=== PATIENT | female | born 1990 | race Caucasian/White ===

== ENCOUNTER 2019-11-17 20:58 | Emergency (ER) | payer OTHER, SELFPAY ==
[2019-11-17 20:58] VITALS: BP 126/72; PULSE 101; RESP 22; TEMP 36.5; O2SAT 99; BMI 37.5
--- NOTE | 2019-11-17 21:27 | RAD_ITS ---
STUDY: X-RAY CHEST REASON FOR EXAM: Female, 29 years old. Recent flu diagnosis. Left side rib pain when coughing. TECHNIQUE: PA and lateral views of the chest. COMPARISON: None. FINDINGS: The lungs are clear and expanded. There is no demonstrated pleural abnormality. Normal size heart. Normal mediastinum and margret. Normal visualized pulmonary arteries. Normal visualized aortic arch and descending thoracic aorta. Normal visualized thoracic spine. Normal visualized ribs, clavicles, and shoulders. There is no demonstrated abnormality of the visualized soft tissue structures of the upper abdomen. RAD/Chest PA and Lateral IMPRESSION: No acute cardiopulmonary process. Electronically Signed: Angelina Shaffer MD at 22:14 EST Tel , Service support ,
[2019-11-17] MEDS: Acetaminophen 500 MG Tablet 1000 MG PO (21:39)
--- NOTE | 2019-11-17 22:07 | ED.DCSUM_ITS ---
- ER Visit Summary Date of Service: 11/17/19 Chief Complaint: Left posterior rib pain after coughing History of Present Illness: The patient is a 29 F who is currently 34 weeks . Recently has had URI symptoms. And earlier today coughed several times and sneezed hard and had acute left lower rib cage pain. No hemoptysis. No history of DVT or PE. No calf pain or swelling. Pain is worse with movement. No recent travel or surgery or hospitalization. No family history of DVT, PEs or clotting disorder. Physical Examination: Young female no acute distress planing of posterior rib cage pain worse with movement. Vital signs are stable afebrile. Pulse ox 99% room air no hypoxia. H EENT exam unremarkable. Neck nontender no JVD. No lymphadenopathy. Lungs clear to auscultation bilaterally. Heart regular rhythm no murmur rate about 100. Chest wall nontender. Abdomen soft nontender normal bowel sounds no peritoneal signs. Extremities moves all 4. Calves nontender without edema or cords. Nontender spine nontender left posterior lower rib cage is mildly tender. No ecchymosis or bruising. No subcu air or crepitance. No bony deformity. Neurologically she is awake and alert with no focal motor deficits. Test Results: Chest x-ray AP lateral view read by myself shows no acute abnormality. Normal cardiac silhouette. Normal lungs. No obvious rib fractures. Emergency Department Course and Treatment: History and exam are consistent with left posterior rib cage and muscle strain. Treatment Plan: Tylenol for pain. Given a dose Tylenol in ER. Ice to the area. Follow-up. Disposition: Discharge Impression: Left posterior rib cage strain from coughing and sneezing Currently at 34 weeks This note was generated with [employer] dictation software. It may contain incorrect words, spelling, and punctuation that were not noted in review of the chart prior to signing ED Disposition - Plan for ED Patient: Referrals: Meena Mayen [Primary Care Provider] -
--- NOTE | 2019-11-17 22:10 | ED.DEP ---
ED Disposition - Plan for ED Patient: Disposition: Home or Assisted Living Instructions: Chest Wall Strain Referrals: Meena Mayen [Primary Care Provider] - As Needed Mari Alcantara MD [STAFF PHYSICIAN] - Keep Karolyn appointment Additional Instructions: Ice to left posterior rib cage. Tylenol for pain. Follow-up with your FISHERIES MANAGER or your primary care physician as needed. This should progressively improve.
[2019-11-17 22:17] VITALS: PULSE 82; RESP 16; O2SAT 99
== END 2019-11-17 22:18 | disposition home or self-care (01) ==
PROVIDERS: Emergency Provider Emergency Medicine; Family Provider Internal Medicine; PCP Internal Medicine
DX: O26.893 Other specified pregnancy related conditions, third trimester (principal); S29.011A Strain of muscle and tendon of front wall of thorax, initial encounter; Z3A.34 34 weeks gestation of pregnancy; X50.3XXA Overexertion from repetitive movements, initial encounter; Y93.89 Activity, other specified; Y92.89 Other specified places as the place of occurrence of the external cause; Y99.8 Other external cause status
CPT/HCPCS: 71046; 99283

== ENCOUNTER → 2019-12-05 16:50 | Outpatient (CLI) | payer OTHER, SELFPAY ==
[2019-12-05 16:23] VITALS: BMI 37.5
== END ==
PROVIDERS: PCP Internal Medicine; Referring Provider Obstetrics & Gynecology; Visit Provider Obstetrics & Gynecology
DX: Z34.90 Encounter for supervision of normal pregnancy, unspecified, unspecified trimester (principal)
CPT/HCPCS: 87081

== ENCOUNTER 2019-12-17 13:00 | Inpatient (IN) | payer OTHER, SELFPAY ==
[2019-12-14 14:42] VITALS: BMI 38.2
[2019-12-17] VITALS (18 sets, daily range): BP systolic 90–117; BP diastolic 34–75; PULSE 64–87; RESP 14–18; TEMP 36.1–37.1; O2SAT 95–100; BMI 38.2
[2019-12-17] MEDS: Lactated Ringers 1,000 ML 125 ML IV (11:40)
--- NOTE | 2019-12-17 13:11 | HP.PCM_ITS ---
- Problem List (1) Active labor at term Status: Acute (2) Patient is Nondenominational Status: Acute (3) Breech presentation Status: Acute (4) Status: Acute Qualifiers: Comment: 34 week [facility]- records obtained and reviewed. (5) Supervision of normal Status: Acute Comment: LIBAN 12/28/19 girl PC Yunior Carlos History Date of Admission: 12/17/19 History of this : This is a 29 year-old, at 38 weeks gestational age presents IAL4 cm dilated and breech. ECV attempted and failed. plan proceeding with primary LTCS. Medical History: Medical History (Last Reviewed 12/14/19 @ 14:42 by Mariela Bravo) Marydel N91.2 Anxiety F41.9 Surgical History: Surgical History (Last Reviewed 12/05/19 @ 15:59 by Mariela Bravo) History of hand surgery Z98.890 right History of tonsillectomy and adenoidectomy Z98.890 Allergies sulfamethoxazole [From Bactrim] Allergy (Mild, Verified 12/17/19 11:45) other trimethoprim [From Bactrim] Allergy (Mild, Verified 12/17/19 11:45) other amoxicillin Allergy (Verified 12/17/19 11:45) Shortness of breath cephalexin [From Keflex] Allergy (Verified 12/17/19 11:45) Shortness of breath citric acid Allergy (Verified 12/17/19 11:45) Itching gluten Allergy (Verified 12/17/19 11:45) Itching lactose Allergy (Verified 12/17/19 11:45) Itching Penicillins Allergy (Verified 12/17/19 11:45) Shortness of breath red dye Allergy (Verified 12/17/19 11:45) Itching soy Allergy (Verified 12/17/19 11:45) Itching Home Medications: Home Medications Epi Pen (for allergic rxn) 1 injectable IM X1 PRN 11/17/19 ferrous sulfate 325 mg (65 mg iron) tablet 325 mg PO DAILY 11/28/19 lactobacillus combination no.8 3 billion cell capsule 3,000 mmu cells PO DAILY 11/28/19 vitamin#30 30 mg iron-10 mg iron-folic acid 1 mg-omg3 capsule 1 cap PO DAILY 11/28/19 Smoking Status: Never smoker NST - FHR Rate Baby A Baseline: 140 Variability:: Moderate Accelerations:: 15 x 15 NST Reactive:: Yes FHR Category:: Category I Uterine Activity:: regular History Past Pregnancies: Past Pregnancies previous term Labs: Social History Smoking Status Never smoker Expected Delivery Method: Primary Section Review of Systems Constitutional: Denies: Fever, Malaise Eyes: Denies: Blurred vision, Vision Change HEENT: Denies: Head Aches, Visual Changes Cardiovascular: Denies: Chest Pain, Palpitations Respiratory: Denies: Cough, Shortness of Breath, Wheezing Gastrointestinal: Reports: Abdominal Pain. Denies: Diarrhea, Nausea, Vomiting Genitourinary: Denies: Dysuria, Hematuria Musculoskeletal: Denies: Joint Pain, Muscle pain Skin: Denies: Lesions, Rash Neurological: Denies: Blurred vision, Focal weakness, Headaches Psychiatric: Denies: Anxiety, Depression Endocrine: Denies: Heat/ Cold Intolerance Hematologic/ Lymphatic: Denies: Easy Bruising, Easy Bleeding Physical Exam General: Alert, Cooperative, No apparent distress HEENT: Atraumatic, Normocephalic. Negative for: Thyromegaly, Lymphadenopathy Cardiovascular: Regular rate Lungs: Normal air movement Abdomen: Soft, Non Tender, Gravid Neurological: Deep Tendon Reflexes 2+/4 and Symmetrical, Neuro grossly intact. Negative for: Clonus HEATING AND REFRIGERATION INSPECTOR: Normal external genitalia. Negative for: Vulvar lesions Estimated gestational size: Appropriate for gestational size Presentation: Breech Cervix Dilation (cm): 4 Assessment/Plan All Active Problems (Last Reviewed 12/14/19 @ 14:42 by Mariela Bravo) Active labor at term (Acute) Patient is Nondenominational (Acute) Breech presentation (Acute) (Acute) Supervision of normal (Acute) This is a 29 year-old, , at 38 weeks gestational age presents IAL breech, failed ECV plan proceeding with LTCS now.
[2019-12-17 13:27] LABS: Hematocrit 37.7 % (37-47); Hemoglobin 12.4 g/dL (12.0-15.0); Mean Corp Hgb Conc 32.9 g/dL (32-36); Mean Corpuscular Hgb 29.6 pg (27.0-32.0); Mean Platelet Vol. 10.8 fl (6.2-12.0); Platelet Count 171 K/mm3 (150-450); RBC Distribution Width CV 13.9 % (11.6-14.6); RBC Distribution Width SD 45.2 fl (35.1-43.9); Red Blood Count 4.19 M/mm3 (4.2-5.4); White Blood Count 11.1 K/mm3 (4.4-11.0)
[2019-12-17] MEDS: Ketorolac 30 MG/ML Syringe IV ×2 (14:46→21:08)
--- NOTE | 2019-12-17 15:03 | PCM.OPRPT ---
Problem List (1) Active labor at term Status: Acute (2) Patient is Mandaen Status: Acute (3) Breech presentation Status: Acute (4) Status: Acute Qualifiers: Comment: 34 week [facility]- records obtained and reviewed. (5) Supervision of normal Status: Acute Comment: LIBAN 12/28/19 girl PC Yunior Carlos Delivery Classification: RAYNA Final LIBAN: 12/28/19 Gestational age: 38 Weeks and 3 Days ophthalmology surgical technician: Valeriano Lainez Type of Anesthesia:: Spinal Special Medications: mike methergine Implants Used: none Date of Procedure: 12/17/19 Pre-Operative Diagnosis: ial breech unable to convert Post-Operative Diagnosis: same Indications for : Malpresentation Description of Procedure: The patient is a 29-year-old G2, P1 at 38 and 3 presents in active labor breech sensation. Spinal anesthesia was placed without difficulty. Hoffman catheter was placed. The patient was placed in the dorsal supine position with leftward tilt. Patient was prepped and draped in the normal sterile fashion. Pfannenstiel skin incision was made with the scalpel and carried through to the underlying layer of fascia with the scalpel. Fascia was nicked in the midline and the incision extended laterally. The rectus bellies were dissected off superiorly and inferiorly with out complication both sharply and bluntly. The peritoneum was entered digitally. The incision was stretched and a low transverse uterine incision was made with the scalpel. The 's buttocks was delivered atraumatically followed by the anterior and posterior shoulders without complication the rest of the delivered. The cord was clamped and cut and the infant was handed off to awaiting nurse. The placenta was delivered spontaneously immediately following and was noted to be intact and have a three-vessel cord. The uterus was exteriorized cleared of all clots and debris, and the incision was closed in a double layer closure using #1 Monocryl. The ovaries and fallopian tubes were noted to be within normal limits. Patient had received terbutaline prior to delivery and therefore Methergine was given postdelivery to reduce the risk of atony. The uterus was returned to the maternal abdomen and gutters were cleared of all clots and debris. The peritoneum was closed with 3-0 Monocryl in a running fashion. Gloves were changed prior to fascial closure. Fascia was closed with 0 PDS in a running fashion. Some Mike was used on the subcutaneous tissue and the muscle. Subcutaneous tissue was copiously irrigated and the skin was closed with 3-0 Monocryl in a subcuticular fashion. Mepilex dressing was applied without complication. Patient was taken to recovery in stable condition. It was discussed with the patient that based on the clinical information obtained during this encounter, combined with her history, at this time I would recommend vaginal deliveries for future deliveries if further pregnancies are desired. Amniotic Membrane Rupture Type: Artificial Amniotic Fluid Description: Clear Placenta Disposition: [facility] Specimen(s) sent to pathology: no Drain: Hoffman to straight drain Cord Entanglement: None Cord Vessel Description: 3 Vessels Esitmated Blood Loss (ml): 600 Infant Gender: Female Delayed cord clamping: Yes Antibiotic Given: Ancef 2 grams IV x1 Pt instructed on risks of surgery: Bleeding, Anesthesia Risks, Infection, Injury to surrounding structure(s) including bowel and bladder Complications: None - Admit VTE Documentation VTE Present on Admission: No VTE Mechan Device Prophylaxis: SCD's VTE Pharm Prophylaxis ordered?: No Multi Select Codes - Urinary/Genital Urinary/Genital CPT Codes: 62437 delivery+ Care([facility])
[2019-12-17] MEDS: Oxytocin 30 units/NS 500 ml 30 UNITS/500 ML IV.SOLN 167 UNITS IV (15:15)
[2019-12-17] MEDS: Lactated Ringers 1,000 ML 100 ML IV (18:43)
[2019-12-17] MEDS: 0.9% Saline Lock 10 ML Syringe IV (21:08)
[2019-12-18] VITALS (12 sets, daily range): BP systolic 91–112; BP diastolic 47–62; PULSE 68–98; RESP 14–18; TEMP 36.4–37.1; O2SAT 95–100
[2019-12-18] MEDS: Ketorolac 30 MG/ML Syringe IV ×2 (03:14→09:55)
[2019-12-18] MEDS: 0.9% Saline Lock 10 ML Syringe IV ×2 (03:14→04:05)
--- NOTE | 2019-12-18 03:15 | NURSING ---
chávez catheter removed at this time. 600 cc clear, yellow/evangelist urine dranined prior to removed. 9cc removed from balloon. pt tolerated well. pt aware of the need to void within 6 hours.
[2019-12-18 03:41] LABS: Hematocrit 35.2 % (37-47); Hemoglobin 11.3 g/dL (12.0-15.0); Mean Corp Hgb Conc 32.1 g/dL (32-36); Mean Corpuscular Hgb 29.4 pg (27.0-32.0); Mean Corpuscular Volume 91.4 fL (81-99); Mean Platelet Vol. 10.5 fl (6.2-12.0); Platelet Count 139 K/mm3 (150-450); RBC Distribution Width SD 46.7 fl (35.1-43.9); Red Blood Count 3.85 M/mm3 (4.2-5.4); White Blood Count 11.8 K/mm3 (4.4-11.0)
[2019-12-18] MEDS: Enoxaparin 40 MG/0.4 ML Syringe SC (05:05)
--- NOTE | 2019-12-18 08:42 | PCM.PN.OB ---
Patient Problems: Active and Suspected Problems (Last Reviewed 12/14/19 @ 14:42 by Mariela Bravo) Active labor at term (Acute) Subjective: Doing well, no complaints.Pain controlled. Denies CP, SOB, N,V. Ambulating well-cath out and has urinated X 2, tolerating po. Lochia moderate, going well. - Physical Exam Vitals/I&O's: Vital Signs Temp Pulse Resp BP Pulse Ox 98.2 F 70 16 97/52 L 98 12/18/19 08:30 12/18/19 08:30 12/18/19 08:30 12/18/19 08:30 12/18/19 08:30 Oxygen Delivery Method Room Air Weight: 230 lb Body Mass Index (BMI) 38.2 Intake and Output for Last 24 Hours 12/16/19 12/17/19 12/18/19 23:59 23:59 23:59 Intake Total 1713.25 / 1713.25 933.33 / 933.33 Output Total 200 / 200 1350 / 1350 Balance 1513.25 / 1513.25 -416.67 / -416.67 General: Alert, Oriented x3 Abdomen: Soft, Non-Distended, - - FF below U. Dressing dry and intact, very small old drainage only Laboratory Results 12/17/19 11:40: WBC 11.1 H, RBC 4.19 L, Hgb 12.4, Hct 37.7, MCV 90.0, MCH 29.6, MCHC 32.9, RDW Std Deviation 45.2 H, RDW Coeff of Razia 13.9, Plt Count 171, MPV 10.8 12/17/19 11:40: Blood Type O POSITIVE, Antibody Screen NEGATIVE 12/18/19 03:20: WBC 11.8 H, RBC 3.85 L, Hgb 11.3 L, Hct 35.2 L, MCV 91.4, MCH 29.4, MCHC 32.1, RDW Std Deviation 46.7 H, RDW Coeff of Razia 14.0, Plt Count 139 L, MPV 10.5 Current Medications Acetaminophen (Tylenol) 1,000 mg PO Q8H PRN PRN Reason: Pain Score 1-3/10 Bisacodyl (Dulcolax) 10 mg RECTAL UD PRN PRN Reason: If no BM Enoxaparin Sodium (Lovenox) 40 mg SC DAILY@0600 ELVIA Last Admin: 12/18/19 05:05 Dose: 40 mg Documented by: Hydrocortisone (Hytone) 1 applic TOPICAL TID PRN PRN; Protocol PRN Reason: Discomfort Naloxone HCl 4 mg/ Dextrose 504 mls @ 0 mls/hr IV .Q0M PRN; Protocol PRN Reason: Respiratory depression Ketorolac Tromethamine (Toradol) 30 mg IV Q6H [facility] Stop: 12/19/19 15:01 Last Admin: 12/18/19 03:14 Dose: 30 mg Documented by: Methylergonovine Maleate (Methergine) 0.2 mg IM X1 PRN PRN Reason: Uterine Atony Naloxone HCl (Narcan) 0.02 mg IV Q1M PRN PRN Reason: RR <10 and pt unresponsive Naproxen (Naprosyn) 250 - 500 mg PO Q8H PRN PRN PRN Reason: Pain Score 1-3/10 Ondansetron HCl (Zofran) 4 mg IV Q4H PRN PRN PRN Reason: Nausea Ondansetron HCl (Zofran Odt) 4 mg PO Q4H PRN PRN PRN Reason: ITCHING Stop: 12/18/19 15:49 Oxycodone HCl (Oxyir) 5 - 10 mg PO Q4H PRN PRN PRN Reason: Pain Score 4-10/10 Prochlorperazine Edisylate (Compazine Iv) 10 mg IV Q6H PRN PRN PRN Reason: NAUSEA Senna/Docusate Sodium (Senokot-S, Mary-Colace) 0 tablet PO DAILY PRN PRN Reason: Constipation Simethicone (Mylicon) 80 mg PO PCHS PRN PRN Reason: Indigestion/stomach pain Sodium Chloride () 5 - 15 ml IV UD PRN PRN Reason: SALINE FLUSH Last Admin: 12/18/19 04:05 Dose: 10 ml Documented by: Medical Necessity - Tobacco Use Smoking Status: Never smoker Assessment/Plan All Active Problems (Last Reviewed 12/14/19 @ 14:42 by Mariela Bravo) Active labor at term (Acute) Patient is Latter day (Acute) Breech presentation (Acute) (Acute) Supervision of normal (Acute) s/p LTCS PPD # 1 1. routine post care 2. breast feeding- support given 3. rh positive 4. rubella immune
[2019-12-18] MEDS: oxyCODONE 5 MG Tablet PO (15:10)
[2019-12-18] MEDS: Acetaminophen 500 MG Tablet 1000 MG PO (16:59)
--- NOTE | 2019-12-18 18:58 | NURSING ---
late [id number] of increased feeling of burning around incision. ecchymosis remains around incision under clear part of dressing that has not increased. Cristhian KELLEY aware and also looked at dressing. Patient refusing iv Toradol due to burning with earlier dose. Will medicate.
[2019-12-18] MEDS: Ibuprofen 600 MG Tablet PO (20:21)
[2019-12-19 01:25] VITALS: BP 110/63; PULSE 66; RESP 16; TEMP 37.2; O2SAT 98
[2019-12-19] MEDS: Ibuprofen 600 MG Tablet PO ×3 (04:48→20:56)
[2019-12-19] MEDS: Acetaminophen 500 MG Tablet 1000 MG PO ×2 (08:09→18:05)
[2019-12-19] MEDS: Enoxaparin 40 MG/0.4 ML Syringe SC (08:11)
[2019-12-19 08:30] VITALS: BP 98/59; PULSE 81; RESP 16; TEMP 37.1; O2SAT 98
--- NOTE | 2019-12-19 08:45 | PN.OBGYN_ITS ---
Patient Problems: Active and Suspected Problems (Last Reviewed 12/14/19 @ 14:42 by Mariela Bravo) Active labor at term (Acute) Subjective: Doing well, no complaints.Pain controlled. Denies CP, SOB, N,V. Ambulating well, tolerating po. Lochia moderate, Bottle feeding - Physical Exam Vitals/I&O's: Vital Signs Temp Pulse Resp BP Pulse Ox 98.8 F 81 16 98/59 L 98 12/19/19 08:30 12/19/19 08:30 12/19/19 08:30 12/19/19 08:30 12/19/19 08:30 Oxygen Delivery Method Room Air Weight: 230 lb Body Mass Index (BMI) 38.2 Intake and Output for Last 24 Hours 12/17/19 12/18/19 12/19/19 23:59 23:59 23:59 Intake Total 1713.25 / 1713.25 933.33 / 933.33 Output Total 200 / 200 1350 / 1350 Balance 1513.25 / 1513.25 -416.67 / -416.67 General: Alert, Oriented x3 Abdomen: Soft, Non-Distended, - - FF below U. Dressing dry and intact Current Medications Acetaminophen (Tylenol) 1,000 mg PO Q8H PRN PRN Reason: Pain Score 1-310 Last Admin: 12/19/19 08:09 Dose: 1,000 mg Documented by: Bisacodyl (Dulcolax) 10 mg RECTAL UD PRN PRN Reason: If no BM Enoxaparin Sodium (Lovenox) 40 mg SC DAILY@0600 ELVIA Last Admin: 12/19/19 08:11 Dose: 40 mg Documented by: Hydrocortisone (Hytone) 1 applic TOPICAL TID PRN PRN; Protocol PRN Reason: Discomfort Naloxone HCl 4 mg/ Dextrose 504 mls @ 0 mls/hr IV .Q0M PRN; Protocol PRN Reason: Respiratory depression Ibuprofen (Motrin) 600 mg PO Q6H PRN PRN PRN Reason: Pain Score 1-3/10 Last Admin: 12/19/19 04:48 Dose: 600 mg Documented by: Methylergonovine Maleate (Methergine) 0.2 mg IM X1 PRN PRN Reason: Uterine Atony Naloxone HCl (Narcan) 0.02 mg IV Q1M PRN PRN Reason: RR <10 and pt unresponsive Ondansetron HCl (Zofran) 4 mg IV Q4H PRN PRN PRN Reason: Nausea Oxycodone HCl (Oxyir) 5 - 10 mg PO Q4H PRN PRN PRN Reason: Pain Score 4-10/10 Last Admin: 12/18/19 15:10 Dose: 5 mg Documented by: Prochlorperazine Edisylate (Compazine Iv) 10 mg IV Q6H PRN PRN PRN Reason: NAUSEA Senna/Docusate Sodium (Senokot-S, Mary-Colace) 0 tablet PO DAILY PRN PRN Reason: Constipation Simethicone (Mylicon) 80 mg PO PCHS PRN PRN Reason: Indigestion/stomach pain Sodium Chloride () 5 - 15 ml IV UD PRN PRN Reason: SALINE FLUSH Last Admin: 12/18/19 04:05 Dose: 10 ml Documented by: Medical Necessity - Tobacco Use Smoking Status: Never smoker Assessment/Plan All Active Problems (Last Reviewed 12/14/19 @ 14:42 by Mariela Bravo) Active labor at term (Acute) Patient is Latter-day (Acute) Breech presentation (Acute) (Acute) Supervision of normal (Acute) s/p LTCS PPD # 2 1. routine post care 2.bottle feeding- support given 3. rh positive 4. rubella immune
--- NOTE | 2019-12-19 08:55 | VDLE_ITS ---
Reason For Study: Left calf pain, R/O DVT Procedure LEFT Exam performed portable in patient room. GSV is normal. A preliminary report was called and/or faxed CFV is compressible, spontaneous, phasic, to WP RN. competent, and demonstrates normal augmentation. FV is compressible, spontaneous, phasic, competent and demonstrates normal augmentation. POP V is compressible, spontaneous, phasic, competent and demonstrates normal augmentation. T/P Trunk is compressible. PTV is compressible. LT PerV is compressible. Interpretation Summary There is no evidence of left lower extremity deep vein thrombosis. Left great saphenous vein appears patent and compressible segmentally. Ordering Physician: Mari Alcantara Referring Physician: Meena Mayen Performed By: Bárbara See RVT
--- NOTE | 2019-12-19 08:58 | NURSING ---
at 0845, shree janel made aware of pt's left calf pain when pt holds her foot flexed and negative homans sign. shree also made aware of pt's increased redness and warmth above her mepilex dressing.
[2019-12-19 14:30] VITALS: BP 108/64; PULSE 71; TEMP 36.4; O2SAT 98
[2019-12-19 21:17] VITALS: BP 113/74; PULSE 71; RESP 16; TEMP 36.3
[2019-12-20 02:00] VITALS: BP 107/60; PULSE 64; RESP 14; TEMP 36.6
[2019-12-20] MEDS: Ibuprofen 600 MG Tablet PO ×2 (06:15→13:03)
[2019-12-20] MEDS: Enoxaparin 40 MG/0.4 ML Syringe SC (06:19)
--- NOTE | 2019-12-20 08:27 | PN.OBGYN_ITS ---
Patient Problems: Active and Suspected Problems (Last Reviewed 12/14/19 @ 14:42 by Mariela Bravo) Active labor at term (Acute) Subjective: Headache persisting since yesterday. Some benefit from pain med, laying flat. Rates as 4 on 1-10 pain scale. Denies CP, SOB, N,V. Ambulating well, tolerating po. Lochia moderate, going well. Lower leg calf pain as improved. Pain controlled concerning incision - Physical Exam Vitals/I&O's: Vital Signs Temp Pulse Resp BP Pulse Ox 98 F 64 14 107/60 98 12/20/19 02:00 12/20/19 02:00 12/20/19 02:00 12/20/19 02:00 12/19/19 14:30 Oxygen Delivery Method Room Air Weight: 230 lb Body Mass Index (BMI) 38.2 Intake and Output for Last 24 Hours 12/18/19 12/19/19 12/20/19 23:59 23:59 23:59 Intake Total 933.33 / 933.33 Output Total 1350 / 1350 Balance -416.67 / -416.67 General: Alert, Oriented x3 Abdomen: Soft, Non-Distended, - - FF below U. Erythema above incision has improved. Dressing dry and intact Current Medications Acetaminophen (Tylenol) 1,000 mg PO Q8H PRN PRN Reason: Pain Score 1-3/10 Last Admin: 12/19/19 18:05 Dose: 1,000 mg Documented by: Bisacodyl (Dulcolax) 10 mg RECTAL UD PRN PRN Reason: If no BM Enoxaparin Sodium (Lovenox) 40 mg SC DAILY@0600 ELVIA Last Admin: 12/20/19 06:19 Dose: 40 mg Documented by: Hydrocortisone (Hytone) 1 applic TOPICAL TID PRN PRN; Protocol PRN Reason: Discomfort Naloxone HCl 4 mg/ Dextrose 504 mls @ 0 mls/hr IV .Q0M PRN; Protocol PRN Reason: Respiratory depression Ibuprofen (Motrin) 600 mg PO Q6H PRN PRN PRN Reason: Pain Score 1-3/10 Last Admin: 12/20/19 06:15 Dose: 600 mg Documented by: Methylergonovine Maleate (Methergine) 0.2 mg IM X1 PRN PRN Reason: Uterine Atony Naloxone HCl (Narcan) 0.02 mg IV Q1M PRN PRN Reason: RR <10 and pt unresponsive Ondansetron HCl (Zofran) 4 mg IV Q4H PRN PRN PRN Reason: Nausea Oxycodone HCl (Oxyir) 5 - 10 mg PO Q4H PRN PRN PRN Reason: Pain Score 4-10/10 Last Admin: 12/18/19 15:10 Dose: 5 mg Documented by: Prochlorperazine Edisylate (Compazine Iv) 10 mg IV Q6H PRN PRN PRN Reason: NAUSEA Senna/Docusate Sodium (Senokot-S, Mary-Colace) 0 tablet PO DAILY PRN PRN Reason: Constipation Simethicone (Mylicon) 80 mg PO PCHS PRN PRN Reason: Indigestion/stomach pain Sodium Chloride () 5 - 15 ml IV UD PRN PRN Reason: SALINE FLUSH Last Admin: 12/18/19 04:05 Dose: 10 ml Documented by: Medical Necessity - Tobacco Use Smoking Status: Never smoker Assessment/Plan All Active Problems (Last Reviewed 12/14/19 @ 14:42 by Mariela Bravo) Active labor at term (Acute) Patient is Confucianist (Acute) Breech presentation (Acute) (Acute) Supervision of normal (Acute) s/p LTCS PPD # 3 1. routine post care 2. breast feeding- support given 3. rh positive 4. rubella immune 5. anesthesia consult today 6. plans home late today.
--- NOTE | 2019-12-20 08:44 | DCINST_ITS ---
Additional Instructions: If you experience any of the following, contact your healthcare provider. * Bleeding that soaks a pad every hour for 2 hours * Fever 100.4 or higher * Unrelieved incision or abdominal pain * Swelling, redness, discharge or bleeding from your incision or episiotomy site * Your incision begins to separate * Problems urinating (including inability to urinate or burning while urinating). * Visual changes * Severe headache * Flu-like symptoms * Pain or redness in one of both of your breasts * Pain, warmth, tenderness or swelling in your legs, especially the calf area * Frequent nausea and vomiting * Symptoms of depression or anxiety If you experience any of the following, call 911 or go to the nearest Emergency Room. * Chest pain * Problems breathing * Seizure activity * Partial or complete paralysis of a body part, slurred speech, weakness or drooping of the face, or a sudden inability to walk or hold your balance Allergies/Adverse Reactions: Allergies sulfamethoxazole [From Bactrim] Allergy (Mild, Verified 12/17/19 11:45) other trimethoprim [From Bactrim] Allergy (Mild, Verified 12/17/19 11:45) other amoxicillin Allergy (Verified 12/17/19 11:45) Shortness of breath cephalexin [From Keflex] Allergy (Verified 12/17/19 11:45) Shortness of breath citric acid Allergy (Verified 12/17/19 11:45) Itching gluten Allergy (Verified 12/17/19 11:45) Itching lactose Allergy (Verified 12/17/19 11:45) Itching Penicillins Allergy (Verified 12/17/19 11:45) Shortness of breath red dye Allergy (Verified 12/17/19 11:45) Itching soy Allergy (Verified 12/17/19 11:45) Itching Medications to take at Discharge Epi Pen (for allergic rxn) 1 injectable IM X1 PRN 11/17/19 ferrous sulfate 325 mg (65 mg iron) tablet 325 mg PO DAILY 11/28/19 lactobacillus combination no.8 3 billion cell capsule 3,000 mmu cells PO DAILY 11/28/19 vitamin#30 30 mg iron-10 mg iron-folic acid 1 mg-omg3 capsule 1 cap PO DAILY 11/28/19 Naproxen 500 mg PO BID PRN #60 tab 12/20/19 Naproxen [Naprosyn] 500 mg PO BID PRN PRN #60 tab 12/20/19 Oxycodone HCl/Acetaminophen [Percocet 5/325] 1 - 2 tablet PO Q4H PRN PRN 7 Days #28 tablet 12/20/19 The following prescriptions were given: Naproxen [Naprosyn] 500 mg PO BID PRN PRN #60 tab PRN Reason: Pain Transmission Status: Received by [id number] Naproxen 500 mg PO BID PRN #60 tab PRN Reason: Pain Transmission Status: Received by [facility] Oxycodone HCl/Acetaminophen [Percocet 5/325] 1 - 2 tablet PO Q4H PRN PRN 7 Days #28 tablet PRN Reason: Pain Transmission Status: Sent to [facility] Follow-Up: Call to make an appointment with your doctor for an incision check in 1-2 weeks. You will also need a 6 week post- follow up appointment. Test results from this visit will be discussed in further detail at your follow- up appointment, if applicable. Primary Care Physician: Meena Mayen [Primary Care Provider] -
[2019-12-20 09:00] VITALS: BP 93/51; PULSE 85; RESP 18; TEMP 37.3; O2SAT 99
[2019-12-20] MEDS: Acetaminophen 500 MG Tablet 1000 MG PO (09:29)
--- NOTE | 2019-12-20 10:45 | NURSING ---
CAESAR Oconnell was in to see pt this am and stated that she had a bad headache this am and lying flat on her back. CAESAR Oconnell requesting a consult with anesthesia before she is d/c to home. When RN went in pt's room at 0850 the pt reported that she does not have even a little headache anymore. Office called to notify to be sure that CAESAR Oconnell is fine with pt going home without an anesthesia consult. No further orders prior to d/c to home.
[2019-12-20 14:36] VITALS: BP 117/74; PULSE 74; RESP 18; TEMP 37.1; O2SAT 96
--- NOTE | 2019-12-24 11:05 | DS.PCM_ITS ---
Discharge Date and Diagnosis Date of Admission: 12/17/19 Hospital Course and Treatment Operations: - - primary c section/breech Summary of Care Provided: The patient is a 29 year old F primary LTCS for breech presentation. routine postop care. No restrictions, regular diet. - Physical Exam Vitals/I&O's: Vital Signs Temp Pulse Resp BP Pulse Ox 98.8 F 74 18 117/74 96 12/20/19 14:36 12/20/19 14:36 12/20/19 14:36 12/20/19 14:36 12/20/19 14:36 Oxygen Delivery Method Room Air Weight: 230 lb Body Mass Index (BMI) 38.2 Home Medications: Medications to take at Discharge Epi Pen (for allergic rxn) 1 injectable IM X1 PRN 11/17/19 ferrous sulfate 325 mg (65 mg iron) tablet 325 mg PO DAILY 11/28/19 lactobacillus combination no.8 3 billion cell capsule 3,000 mmu cells PO DAILY 11/28/19 vitamin#30 30 mg iron-10 mg iron-folic acid 1 mg-omg3 capsule 1 cap PO DAILY 11/28/19 Naproxen 500 mg PO BID PRN #60 tab 12/20/19 Naproxen [Naprosyn] 500 mg PO BID PRN PRN #60 tab 12/20/19 Oxycodone HCl/Acetaminophen [Percocet 5/325] 1 - 2 tab PO Q4H PRN PRN 7 Days #28 tab 12/20/19 Following Prescrptions Were Given to Patient: Naproxen [Naprosyn] 500 mg PO BID PRN PRN #60 tab PRN Reason: Pain Transmission Status: Received by [id number] Naproxen 500 mg PO BID PRN #60 tab PRN Reason: Pain Transmission Status: Received by [facility] Oxycodone HCl/Acetaminophen [Percocet 5/325] 1 - 2 tab PO Q4H PRN PRN 7 Days #28 tab PRN Reason: Pain Transmission Status: Received by [facility] Primary Care Physician: Meena Mayen [Primary Care Provider] - Please Follow Up With: Mari Alcantara MD When: 1-2 weeks Please Follow Up With: Dr. Clancy When: 1-2 days Medical Necessity - Tobacco Use Smoking Status: Never smoker Meaningful Use Info Meaningful Use Diagnoses (Choose all that apply): None applicable
== END 2019-12-20 15:20 | disposition home or self-care (01) | DRG 788 ==
LOC: WPOUT 13:32 → WP 13:32
PROVIDERS: Admitting Provider Obstetrics & Gynecology; PCP Internal Medicine; Referring Provider Obstetrics & Gynecology; Visit Provider Obstetrics & Gynecology
DX: O32.1XX0 Maternal care for breech presentation, not applicable or unspecified (principal); Z3A.38 38 weeks gestation of pregnancy; Z37.0 Single live birth; O90.89 Other complications of the puerperium, not elsewhere classified; M79.669 Pain in unspecified lower leg
CPT/HCPCS: 59050; 85027; 86850; 86900; 86901; 93971; 94762; 99218; 99251; J7120; A4216; G0378; G0463; J2405

== ENCOUNTER → 2020-10-06 | Outpatient (CLI) | payer OTHER, SELFPAY ==
[2020-10-06 09:50] VITALS: BMI 38.2
[2020-10-06 14:20] LABS: Amphetamine Urine VISTA NEGATIVE (<1000 ng/mL); Barbiturate Urine VISTA NEGATIVE (< 200 ng/mL); Benzodiazepine Urine VISTA NEGATIVE (< 200 ng/mL); Cocaine Urine VISTA NEGATIVE (< 300 ng/mL); Ecstacy Urine VISTA NEGATIVE (< 500 ng/mL); Methadone Urine VISTA NEGATIVE (< 300 ng/mL); PCP Urine VISTA NEGATIVE (< 25 ng/mL); THC Urine VISTA NEGATIVE (< 50 ng/mL); Vista UDS pH Range 7
[2020-10-08 03:06] LABS: Chlamydia By Nucleic Acid AMP Negative (Negative)
[2020-10-08 13:04] LABS: Gonococcus By Nucleic Acid AMP Negative (Negative)
== END | disposition home or self-care (01) ==
LOC: LABSPEC 13:10
PROVIDERS: PCP Internal Medicine; Referring Provider Obstetrics & Gynecology; Visit Provider Obstetrics & Gynecology
DX: Z34.90 Encounter for supervision of normal pregnancy, unspecified, unspecified trimester (principal)
CPT/HCPCS: 80307; 87086; 87088; 87491; 87591; 87624; 88175; G0145

== ENCOUNTER → 2020-10-20 07:47 | Outpatient (CLI) | payer OTHER, SELFPAY ==
[2020-10-06 09:50] VITALS: BMI 38.2
[2020-10-20 08:24] LABS: Absolute Neutrophil Count 4.1 X10^3/uL (2.0-7.7); Basophil# 0.02 X10^3/uL; Basophil% 0.3 % (0-1); Eosinophil# 0.03 X10^3/uL; Eosinophils% 0.5 % (0-5); Hematocrit 42.4 % (37-47); Hemoglobin 13.7 g/dL (12.0-15.0); Mean Corp Hgb Conc 32.3 g/dL (32-36); Mean Corpuscular Hgb 28.1 pg (27.0-32.0); Mean Corpuscular Volume 86.9 fL (81-99); Mean Platelet Vol. 10.8 fl (6.2-12.0); Monocyte# 0.54 X10^3/uL; Monocyte% 8.9 % (0-10); NRBC Flagged by Analyzer 0 % (0-5); Neutrophil % 67.1 % (47-70); Platelet Count 184 K/mm3 (150-450); RBC Distribution Width SD 44.5 fl (35.1-43.9); Red Blood Count 4.88 M/mm3 (4.2-5.4); White Blood Count 6.1 K/mm3 (4.4-11.0)
[2020-10-20 09:47] LABS: HIV - WCH Non-Reactive (Nonreactive); Hepatitis B Surface Antigen Non-Reactive (Nonreactive); Hepatitis C Antibody Non-Reactive (Nonreactive); Rubella IgG Reactive (Nonreactive)
[2020-10-23 02:34] LABS: Rapid Plasmin Reagin (RPR) NONREACTIVE (NONREACTIVE)
== END ==
PROVIDERS: PCP Internal Medicine; Referring Provider Obstetrics & Gynecology; Visit Provider Obstetrics & Gynecology
DX: Z34.90 Encounter for supervision of normal pregnancy, unspecified, unspecified trimester (principal)
CPT/HCPCS: 36415; 85025; 86592; 86703; 86762; 86803; 86850; 86900; 86901; 87340

== ENCOUNTER → 2020-10-23 | Outpatient (CLI) | payer OTHER, SELFPAY ==
[2020-10-23 11:11] VITALS: BMI 38.1
== END | disposition home or self-care (01) ==
LOC: LABSPEC 12:54
PROVIDERS: PCP Internal Medicine; Referring Provider Obstetrics & Gynecology; Visit Provider Obstetrics & Gynecology
DX: N89.8 Other specified noninflammatory disorders of vagina (principal)
CPT/HCPCS: 87070; 87205

== ENCOUNTER → 2021-02-12 09:49 | Outpatient (CLI) | payer MEDICAID, SELFPAY ==
[2021-02-12 09:32] VITALS: BMI 40.4
[2021-02-12 10:04] LABS: Absolute Lymphocyte Count 1.32 X10^3/uL (0.83-4.51); Absolute Neutrophil Count 7.6 X10^3/uL (2.0-7.7); Basophil# 0.03 X10^3/uL; Basophil% 0.3 % (0-1); Eosinophil# 0.03 X10^3/uL; Eosinophils% 0.3 % (0-5); Hematocrit 39.4 % (37-47); Hemoglobin 12.8 g/dL (12.0-15.0); Lymphocyte # 1.32 X10^3/ul (4.0); Lymphocyte % 13.6 % (19-41); Mean Corp Hgb Conc 32.5 g/dL (32-36); Mean Corpuscular Hgb 29.1 pg (27.0-32.0); Mean Corpuscular Volume 89.5 fL (81-99); Mean Platelet Vol. 9.9 fl (6.2-12.0); Monocyte# 0.69 X10^3/uL; Monocyte% 7.1 % (0-10); NRBC Flagged by Analyzer 0 % (0-5); Neutrophil # 7.56 X10^3/uL (2.7-7.7); Neutrophil % 78.1 % (47-70); Platelet Count 170 K/mm3 (150-450); RBC Distribution Width CV 13.4 % (11.6-14.6); White Blood Count 9.7 K/mm3 (4.4-11.0)
== END ==
PROVIDERS: PCP Internal Medicine; Referring Provider Obstetrics & Gynecology; Visit Provider Obstetrics & Gynecology
DX: Z34.90 Encounter for supervision of normal pregnancy, unspecified, unspecified trimester (principal)
CPT/HCPCS: 36415; 85025

== ENCOUNTER → 2021-04-16 12:23 | Outpatient (CLI) | payer MEDICAID, SELFPAY ==
[2021-04-16 09:54] VITALS: BMI 40.6
== END ==
PROVIDERS: PCP Internal Medicine; Referring Provider Obstetrics & Gynecology; Visit Provider Obstetrics & Gynecology
DX: Z34.80 Encounter for supervision of other normal pregnancy, unspecified trimester (principal)
CPT/HCPCS: 87081

== ENCOUNTER 2021-04-17 07:35 | Outpatient (CLI) | payer MEDICAID, SELFPAY ==
[2021-04-16 09:54] VITALS: BMI 40.6
[2021-04-17 07:51] VITALS: TEMP 37.1; O2SAT 98
[2021-04-17 07:52] VITALS: BP 117/72; PULSE 77; TEMP 37.1
[2021-04-17 08:20] VITALS: BMI 41.4
[2021-04-17] MEDS: Lactated Ringers 1,000 ML 999 ML IV (10:20)
--- NOTE | 2021-04-20 09:25 | OB.TRI.PN ---
Progress Notes Progress Note: Patient presents for triage evaluation secondary to contractions. Cervix 1cm on initial exam and on recheck FHT: Moderate variability reactive no decelerations category I tracing [place]: Q5-6min Contractions Assessment and plan: Reactive NST, reassuring maternal and status patient discharged to home to follow-up next scheduled visit. See problem list details for additional plan information. Charges/Coding Procedures Urinary/Genital 52xxx-59xxx: 14365-88 non-stress test Interp
== END 2021-04-17 11:45 | disposition home or self-care (01) ==
LOC: WPOUT 07:40 → WP 07:41
PROVIDERS: PCP Internal Medicine; Referring Provider Obstetrics & Gynecology; Visit Provider Obstetrics & Gynecology
DX: Z34.90 Encounter for supervision of normal pregnancy, unspecified, unspecified trimester (principal)
CPT/HCPCS: 96360; 59025; 59050; 99218; J7120; G0378

== ENCOUNTER 2021-04-22 20:45 | Outpatient (CLI) | payer MEDICAID, SELFPAY ==
[2021-04-22 13:19] VITALS: BMI 41.1
[2021-04-22 21:03] VITALS: TEMP 36.8
[2021-04-22 21:06] VITALS: BP 124/71; PULSE 94
[2021-04-22 21:22] VITALS: BMI 41.4
[2021-04-22 21:56] LABS: ROM Internal Control Test YES-OK TO RESULT pt. (Internal QC); ROM Patient Test Negative (Negative)
[2021-04-22] MEDS: Lactated Ringers 1,000 ML 999 ML IV (22:50)
[2021-04-23] MEDS: Mag Hydrox/Al Hydrox/Simeth 30 ML UDC PO (01:08)
--- NOTE | 2021-04-24 08:47 | OB.TRI.PN_ITS ---
Progress Notes Date of Service: 04/22/21 Progress Note: Patient presents for triage evaluation secondary to leakage of fluid. ROM negative. Baby initially tachycardic, but normalized with IV fluids. Cervix unchanged throughout stay. FHT: Moderate variability reactive no decelerations category I tracing [place]: Irregular Contractions Assessment and plan: Reactive NST, reassuring maternal and status patient discharged to home to follow-up at next scheduled visit. See problem list details for additional plan information. Laboratory Studies: Laboratory Tests 04/22/21 Range/Units 21:20 Vag Amniotic Fld Detect Negative (Negative) Charges/Coding Procedures Urinary/Genital 52xxx-59xxx: 87648-26 non-stress test Interp
== END 2021-04-23 01:10 | disposition home or self-care (01) ==
LOC: WPOUT 20:50 → WP 20:51
PROVIDERS: PCP Internal Medicine; Visit Provider Obstetrics & Gynecology
DX: O36.8390 Maternal care for abnormalities of the fetal heart rate or rhythm, unspecified trimester, not applicable or unspecified (principal); Z3A.00 Weeks of gestation of pregnancy not specified
CPT/HCPCS: 96360; 59025; 59050; 84112; 99218; J7120; G0378

== ENCOUNTER 2021-04-29 21:04 | Outpatient (CLI) | payer MEDICAID, SELFPAY ==
[2021-04-29 21:22] VITALS: PULSE 93; O2SAT 82
[2021-04-29 21:24] VITALS: BP 123/79; PULSE 81; TEMP 36.8; O2SAT 98
[2021-04-29 21:33] VITALS: BMI 41.8
[2021-04-29] MEDS: DiphenhydrAMINE 25 MG Capsule 50 MG PO (22:32)
[2021-04-29] MEDS: Nalbuphine 10 MG/ML Ampul IM (22:32)
[2021-04-29 23:37] VITALS: BP 115/73; PULSE 61; PULSE 64; O2SAT 98
--- NOTE | 2021-05-05 07:50 | OB.TRI.PN_ITS ---
Progress Notes Date of Service: 04/29/21 Progress Note: Patient presents for triage evaluation secondary to labor FHT: 140 Moderate variability reactive no decelerations category I tracing [place]: irregular Contractions Assessment and plan: false labor no cervical change Reactive NST, reassuring maternal and status patient discharged to home to follow-up as scheduled. See problem list details for additional plan information. Charges/Coding Procedures Urinary/Genital 52xxx-59xxx: 29047-93 non-stress test Interp
== END 2021-04-30 00:57 | disposition home or self-care (01) ==
LOC: WPOUT 21:09 → WP 21:10
PROVIDERS: PCP Internal Medicine; Visit Provider Obstetrics & Gynecology
DX: O47.9 False labor, unspecified (principal); Z3A.00 Weeks of gestation of pregnancy not specified
CPT/HCPCS: 59025; 59050; 94760; 96372; 99218; G0378

== ENCOUNTER → 2021-04-30 11:50 | Outpatient (CLI) | payer MEDICAID, SELFPAY ==
[2021-04-30 11:04] VITALS: BMI 41.8
[2021-04-30 12:15] LABS: Absolute Lymphocyte Count 1.74 X10^3/uL (0.83-4.51); Absolute Neutrophil Count 9.4 X10^3/uL (2.0-7.7); Basophil# 0.05 X10^3/uL; Basophil% 0.4 % (0-1); Eosinophil# 0.21 X10^3/uL; Eosinophils% 1.7 % (0-5); Hematocrit 42.9 % (37-47); Lymphocyte # 1.74 X10^3/ul (0.83-4.51); Lymphocyte % 13.9 % (19-41); Mean Corp Hgb Conc 32.6 g/dL (32-36); Mean Corpuscular Hgb 28.4 pg (27.0-32.0); Mean Platelet Vol. 10.7 fl (6.2-12.0); Monocyte# 1.06 X10^3/uL; Monocyte% 8.4 % (0-10); NRBC Flagged by Analyzer 0 % (0-5); Neutrophil # 9.38 X10^3/uL (2.7-7.7); Neutrophil % 74.7 % (47-70); Platelet Count 193 K/mm3 (150-450); RBC Distribution Width CV 14.1 % (11.6-14.6); RBC Distribution Width SD 44.6 fl (35.1-43.9); Red Blood Count 4.93 M/mm3 (4.2-5.4); White Blood Count 12.6 K/mm3 (4.4-11.0)
[2021-04-30 12:48] LABS: ALB/GLOB Ratio 0.9 RATIO (0.9-2.4); AST(SGOT) 11 U/L (15-37); Alanine Aminotransfer ALT/SGPT 16 U/L (13-56); Albumin, Serum 3.3 g/dL (3.2-5.0); Alkaline Phosphatase 120 U/L (45-117); Anion Gap 6 (5-15); BUN 10 mg/dL (7-18); BUN/Creat Ratio 13.8 RATIO (10-20); Calcium,Total 9.5 mg/dL (8.5-10.1); Chloride 108 mmol/L (98-107); Creatinine, Serum 0.73 mg/dL (0.55-1.02); EST Glomerular Filtration Rate 98 mL/min (>60); Est Glom Filt Rate - Afr Amer 119 mL/min (>60); Globulin 3.8 g/dL (2.2-4.2); Glucose 83 mg/dL (74-106); Potassium 4.2 mmol/L (3.5-5.1); Protein, Total 7.1 g/dL (6.4-8.2); Sodium Level 137 mmol/L (136-145)
== END ==
PROVIDERS: PCP Internal Medicine; Referring Provider Obstetrics & Gynecology; Visit Provider Obstetrics & Gynecology
DX: L29.9 Pruritus, unspecified (principal)
CPT/HCPCS: 36415; 80053; 85025

== ENCOUNTER 2021-05-05 02:40 | Inpatient (IN) | payer MEDICAID, SELFPAY ==
[2021-04-30 11:04] VITALS: BMI 41.8
[2021-05-05] VITALS (38 sets, daily range): BP systolic 86–142; BP diastolic 50–96; PULSE 60–111; RESP 16; TEMP 35.8–37.3; O2SAT 82–100; BMI 41.8
[2021-05-05 02:24] LABS: ROM Internal Control Test YES-OK TO RESULT pt. (Internal QC)
[2021-05-05 02:25] LABS: ROM Patient Test POSITIVE (Negative)
[2021-05-05] MEDS: Lactated Ringers 1,000 ML 50 ML IV (03:00)
[2021-05-05] MEDS: Lactated Ringers 500 ML 999 ML IV (03:00)
--- NOTE | 2021-05-05 03:12 | HP.PCM.OB_ITS ---
HPI - General General Date of Admission: 05/05/21 HPI Narrative MARY ELLEN GUZMAN, is a 30 F who presents in active labor 38 weeks 6 days. She had spontaneous rupture of membranes with clear fluid early this morning and is having regular contractions ever since. Denies any vaginal bleeding or abdominal pain outside of contractions Maternal Data Information LIBAN Calculator Estimated Delivery Date Method Current WG Current Estimate 05/13/21 LMP (Certain) 38w 6d Other Estimates 05/12/21 Ultrasound #1 39w 0d PFSH PFSH Medical History (Updated 05/05/21 @ 03:[address] Mari Alcantara MD) [place] Anxiety Home Medications epinephrine 1 injectable IM X1 PRN 11/17/19 [History Last Taken Unknown] clindamycin HCl 300 mg PO TID 04/29/21 [History Last Taken 05/04/21 21:00] hydroxyzine pamoate 50 mg capsule 50 mg PO TID-QID PRN #90 cap 04/30/21 [Rx Last Taken 05/04/21 03:00] prednisone 10 mg PO DAILY 05/05/21 [History Last Taken 05/04/21 10:00] Allergy/AdvReac Type Severity Reaction Status Date / Time amoxicillin Allergy Severe Anaphylaxis Verified 04/30/21 11:03 cephalexin [From Keflex] Allergy Severe Anaphylaxis Verified 04/30/21 11:03 Penicillins Allergy Severe Anaphylaxis Verified 04/30/21 11:03 sulfamethoxazole Allergy Severe Anaphylaxis Verified 04/30/21 11:03 [From Bactrim] trimethoprim [From Bactrim] Allergy Severe Anaphylaxis Verified 04/30/21 11:03 gluten Allergy Abd Verified 04/30/21 11:03 cramps/diarrhea lactose Allergy Abd Verified 04/30/21 11:03 cramps/diarrhea Family History Grandmother Breast cancer, Onset Age: 70 grandmother and great grandmother Surgical History History of hand surgery History of tonsillectomy and adenoidectomy Social History Smoking Status: Never smoker alcohol intake: never substance use type: does not use caffeine: Yes what type of physical activity do you participate in: walking seatbelt use: always do you feel safe at home: Yes additional social history: Kurtis Aviles Patient stays at home History 3 Elective abortions Hx Para 2 Spontaneous abortions Hx # Term Pregnancies Ectopic pregnancies Hx # Pregnancies Multiple births # of living children 2 Past Pregnancies Del. Date Name GA/Weeks Outcome Route Bth Weight Gen Labor Lgth Anesthesia Del Locatn Provider FOB Unknown 2014 Yunior 39 live - full term 6lbs Male epidural [place] [employer] Carlos 12/17/19 Maribel 38 live - full term 6lbs Female spinal [facility] Delivery Date: No notes to display Delivery Date: 12/17/19 LTCS failed version in labor Lexy José Visit Details Expected Delivery Route/Plan TOLAC patient counseled regarding risks/benefits of trial of labor versus repeat . ACOG/uptodate education given to patient. 72 % likelihood of success per calculator TOLAC consent form signed: 04/16/21 DOES NOT ACCEPT BLOOD PRODUCTS Labor Preferences- labor support person: Carlos labor intervention preferences: minimal intervention, maybe hydrotherapy pain management options preferred: desires natural but open to epidural cut cord/dad catch: both : [] PP control planned: [] discussed possible routes of delivery and associated risks: [] special requests: wants to use peanut ball in labor Plans flu vaccine declined tdap vaccine: given rhogam: na LARC form signed: yes Problem list reviewed and updated with the most current plan of care details and appropriate orders placed. Relevant counseling for the gestational age provided. Continue routine care and follow up unless otherwise noted in visit notes/problem list details OB Flowsheet Initial Weight: 230 lb Date -?-?-?-?-?-?-?-?-?-?-?-?- EGA Weight BP Urine Prot -?-?-?-?-?-?-?-?-?-?-?-?- Glucose FHR FuHt Pres Dilation -?-?-?-?-?-?-?-?-?-?-?-?- Effaced St Visit Note 10/06/20 -?-?-?-?-?-?-?-?-?-?-?-?- 8w 5d 230 lb (+0 oz) 108/70 -?-?-?-?-?-?-?-?-?-?-?-?- 180 -?-?-?-?-?-?-?-?-?-?-?-?- SM- CRL 1.9cm co ns with LMP 10/23/20 -?-?-?-?-?-?-?-?-?-?-?-?- 11w 1d 229 lb (-16 oz) 126/86 -?-?-?-?-?-?-?-?-?-?-?-?- 160 -?-?-?-?-?-?-?-?-?-?-?-?- SM- increased di esmer no bleeding 11/20/20 -?-?-?-?-?-?-?-?-?-?-?-?- 15w 1d 230 lb (+0 oz) 120/82 Negative -?-?-?-?-?-?-?-?-?-?-?-?- Negative 150 -?-?-?-?-?-?-?-?-?-?-?-?- SM- no vb lof go od fm n oregular ctx 12/18/20 -?--?-?-?-?-?-?-?-?-?-?-?- 19w 1d 232 lb 6 oz (+2 lb 6 oz) 132/72 Negative -?-?-?-?-?-?-?-?-?-?-?-?- Negative 150 -?-?-?-?-?-?-?-?-?-?-?-?- GP - no cramping or bleeding. +FM. Anatomy scan after visit today. 01/15/21 -?-?-?-?-?-?-?-?-?-?-?-?- 23w 1d 238 lb (+8 lb) 100/82 Negative -?-?-?-?-?-?-?-?-?-?-?-?- Negative 150 -?-?-?-?-?-?-?-?-?-?-?-?- SM- no vb lof go od fm n oregular ctx 02/12/21 -?-?-?-?-?-?-?-?-?-?-?--?- 27w 1d 243 lb 4 oz (+13 lb 4 oz) 130/70 Negative -?-?-?-?-?-?-?-?-?-?-?-?- Negative 156 28 -?-?-?-?-?-?-?-?-?-?-?-?- MH-refuses 1 hr GCT. Will do 1 week for glucose checks and call results. CBC today. Tdap, Larc. 03/05/21 -?-?-?-?-?-?-?-?-?-?-?-?- 30w 1d 244 lb (+14 lb) 108/7 -?-?-?-?-?-?-?-?-?-?-?-?- 155 30 -?-?-?-?-?-?-?-?-?-?-?-?- SM- no vb lof go od fm n oreuglar ctx 03/19/21 -?-?--?-?-?-?-?-?-?-?-?-?- 32w 1d 246 lb 4 oz (+16 lb 4 oz) 122/72 Negative -?-?-?-?-?-?-?-?-?-?-?-?- Negative 140 32 -?-?-?-?-?-?-?-?-?-?-?--?- GP - no LOF, VB, DFM, ctx. Denies complaints. 04/02/21 -?-?-?-?-?-?-?-?-?-?-?-?- 34w 1d 248 lb (+18 lb) 114/80 Negative -?-?-?-?-?-?-?-?-?-?-?-?- Negative 140 34 -?-?-?-?-?-?-?-?-?-?-?-?- SM- no vb lof co some n/v and loose stool. SM- no vb lof co some n/v an d loose stool. lower pelvic pain 04/16/21 -?-?-?-?-?-?-?-?-?-?-?-?- 36w 1d 249 lb 8 oz (+19 lb 8 oz) 114/80 Negative -?-?-?-?-?-?-?-?-?-?-?-?- Negative 140 36 Cephalic 1 -?-?-?-?-?-?-?-?-?-?-?-?- 50 -3 GP - no LO F, VB, DFM, regular ctx. TOLAC consent signed. Discussed labor preferences. 04/22/21 -?-?-?-?-?-?-?-?-?-?-?-?- 37w 0d 247 lb 2 oz (+17 lb 2 oz) 130/90 Negative -?-?-?-?-?-?-?-?-?-?-?-?- Negative 140 37 Cephalic 3 -?-?-?-?-?-?-?-?-?-?-?-?- 60 -2 GP - no LO F, VB, DFM. More regular ctx. Severe poison [place] - given prednisone dosepack 04/30/21 -?-?-?-?-?-?-?-?-?-?-?-?- 38w 1d 246 lb (+16 lb) 110/82 Negative -?-?-?-?-?-?-?-?-?-?-?-?- Negative 140 38 Cephalic 2 -?-?-?-?-?-?-?-?-?-?-?-?- 60 -2 SM- no vb lof good fm no reuglar ctx discussed recent poison [place] and having itching, some early rash on abdomen but unclear if pupps, dicsussed exp management vs IOL vs cs 05/05/21 -?-?-?-?-?-?-?-?-?-?-?-?- 38w 6d 251 lb 1.704 oz (+21 lb 1.704 oz) 132/93 117/76 -?-?-?-?-?-?-?-?-?-?-?-?- -?-?-?-?-?-?-?-?-?-?-?-?- NST FHR Rate Baby A Baseline: 130 Variability:: Moderate Accelerations:: 15 x 15 Decelerations:: None NST Reactive:: Yes FHR Category:: Category I Uterine Activity:: q3-5 ROS Constitutional Constitutional: Reports systems reviewed and no addt'l complaints, except as documented ENT HEENT: Reports systems reviewed and no addt'l complaints, except as documented Cardiovascular Cardiovascular: Reports systems reviewed and no addt'l complaints, except as documented Respiratory/Chest Respiratory/Chest: Reports systems reviewed and no addt'l complaints, except as documented Gastrointestinal Gastrointestinal: Reports systems reviewed and no addt'l complaints, except as documented and nausea; Denies abdominal pain Genitourinary Genitourinary: Reports systems reviewed and no addt'l complaints, except as documented, contractions Details: present and frequency (regular ) and movement Details: present Musculoskeletal Musculoskeletal: Reports systems reviewed and no addt'l complaints, except as documented Integumentary Integumentary: Reports as per HPI Neurologic Neurologic: Reports systems reviewed and no addt'l complaints, except as documented Endocrine Endocrinology: Reports systems reviewed and no addt'l complaints, except as documented Vital Signs Vital Signs Vital Signs: 05/05/21 02:05 05/05/21 02:22 Pulse Rate 86 78 Blood Pressure 132/93 H 117/76 BP Systolic 132 117 BP Diastolic 93 76 Pulse Ox 99 Weight Weight: 251 lb 1.704 oz Body Mass Index (BMI) 41.8 Physical Exam Const alert, oriented x3 and healthy appearing Constitutional Narrative: uncomfortable with contractions HEENT normocephalic and moist oral mucous membranes Head and Scalp: atraumatic Neck full ROM, no lymphadenopathy, supple and thyroid normal General: trachea midline Thyroid: thyroid normal Lymph Lymphatic: no lymphadenopathy noted Chest inspection of chest normal Resp normal respiratory effort Cardio regular rate GI normal to inspection, nondistended, normoactive bowel sounds, soft to palpation and non-tender Inspection: gravid external exam normal Bimanual Exam - Vag & Uterus: uterus non-tender Manual OB Exam: estimated gestational size appropriate, presentation cephalic, dilated, effaced and station Extremity normal to inspection General Extremity: Negative for edema Skin no rashes or lesions noted Neuro deep tendon reflexes 2+ bilaterally Motor Exam: strength 5/5 throughout and clonus absent Psych mental status grossly normal Labs Labs Labs: Blood Type O POSITIVE Antibody Screen NEGATIVE Hct 42.9 % (37-47) Hgb 14.0 g/dL (12.0-15.0) Rubella IgG Antibody Reactive (Nonreactive) Hep Bs Antigen Non-Reactive (Nonreactive) Neisseria gonorrhoeae DNA (IRON) Negative (Negative) HIV 1&2 Antibody Non-Reactive (Nonreactive) Rhogam given: No Miscellaneous Test Assessment & Plan (1) 36 weeks gestation of : COMMENT: electronic covid test ordered 04/14/21 (scheduled for 05/01/21 at 1350) (2) BMI 38.0-38.9,adult: COMMENT: declines 1 hour inital gtt. home testing WNL declines 28 wk 1 hr GCT-will call home testing results (3) H/O section: COMMENT: desires TOLAC, previous then cs for breech (4) Anxiety and depression: COMMENT: encouraged counseling. no meds 02/12 stable (5) : QUALIFIERS: Weeks of gestation: 38 weeks Qualified Code(s): Z3A.38 - 38 weeks gestation of COMMENT: declines genetic, carrier and NTD, anatomy normal. 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 PLAN: Patient presents IAL, plan expectant management for , pitocin/AROM PRN if needed. Pain management: Plans epidural. GBS negative. Management of any complications: Previous plan trial of labor after I have reviewed the [facility] and made any clinically relevant updates. (8) SROM (spontaneous rupture of membranes):
[2021-05-05 03:20] LABS: Absolute Lymphocyte Count 2.86 X10^3/uL (0.83-4.51); Absolute Neutrophil Count 12.1 X10^3/uL (2.0-7.7); Basophil# 0.07 X10^3/uL; Basophil% 0.4 % (0-1); Eosinophil# 0.07 X10^3/uL; Eosinophils% 0.4 % (0-5); Hematocrit 39.2 % (37-47); Lymphocyte # 2.86 X10^3/ul (0.83-4.51); Lymphocyte % 17.1 % (19-41); Mean Corp Hgb Conc 33.2 g/dL (32-36); Mean Corpuscular Hgb 28.7 pg (27.0-32.0); Mean Corpuscular Volume 86.5 fL (81-99); Mean Platelet Vol. 10.7 fl (6.2-12.0); Monocyte# 1.42 X10^3/uL; Monocyte% 8.5 % (0-10); NRBC Flagged by Analyzer 0 % (0-5); Neutrophil # 12.11 X10^3/uL (2.7-7.7); Neutrophil % 72.5 % (47-70); Platelet Count 208 K/mm3 (150-450); RBC Distribution Width CV 13.8 % (11.6-14.6); RBC Distribution Width SD 43.9 fl (35.1-43.9); Red Blood Count 4.53 M/mm3 (4.2-5.4); White Blood Count 16.7 K/mm3 (4.4-11.0)
[2021-05-05] MEDS: fentaNYL-bupivacaine (epidural) 100 ML BAG EPIDURAL ×2 (04:17→08:45)
[2021-05-05] MEDS: Oxytocin 30 units/NS 500 ml 30 UNITS/500 ML IV.SOLN IV (07:08)
[2021-05-05] MEDS: Lactated Ringers 1,000 ML 200 ML IV (08:43)
[2021-05-05] MEDS: Oxytocin 30 units/NS 500 ml 30 UNITS/500 ML IV.SOLN 334 UNITS IV (09:52)
--- NOTE | 2021-05-05 10:03 | EX.PCM.OBRPT ---
Assessment & Plan (1) Vaginal after : COMMENT: 39 SM Emaline Maternal Data Information LIBAN Calculator Estimated Delivery Date Method Current WG Current Estimate 05/13/21 LMP (Certain) 38w 6d Other Estimates 05/12/21 Ultrasound #1 39w 0d Vaginal Delivery Operative Information Date of Procedure: 05/05/21 Pre-Operative Diagnosis: IAL Post-Operative Diagnosis: same Surgery / Procedure Performed: Type of Anesthesia: Epidural Special Medications: none Estimated Blood Loss: 100 Fluids Replaced: crystalloid Findings Description of Procedure: Patient began pushing and delivered the head in the KIMO presentation. The head was delivered atraumatically and a loose nuchal cord ?1 was identified and the infant delivered through without complication. The anterior and posterior shoulders delivered without complication followed by the rest of the infant and the was placed on the maternal abdomen. Delayed cord clamping was employed for approximately 60 seconds. Cord was clamped and cut and gentle traction was applied to the cord and the placenta delivered spontaneously immediately following it was noted to be intact with three-vessel cord. The perineum and vagina were inspected and noted to have a small first-degree perineal laceration that was repaired in the usual fashion with 3-0 Vicryl Rapide. EBL was 100 cc. Patient and tolerated delivery well. Presentation: KIMO Amniotic Membrane Rupture Type: Artificial Amniotic Fluid Description: Clear Placental Delivery Description: Spontaneous Placenta Disposition: [facility] Cord Vessel Description: 3 Vessels Cord Entanglement: Around neck x 1, tight and - Infant A Gender: Female Delayed Cord Clamping: Yes Post Vaginal Delivery Medications Given After Delivery: IV Pitocin Episiotomy Description: None Laceration: Perineal Extension/lac and 1st degree Complication Complications: None Procedures Urinary/Genital 52xxx-59xxx: 52406 Vaginal Delivery+PP Care([facility])
[2021-05-05] MEDS: Clindamycin HCl 150 MG Capsule 300 MG PO ×2 (10:07→21:48)
--- NOTE | 2021-05-05 10:08 | PCM.DC ---
Discharge Instructions Diet Discharge Diet: No restrictions Activity Discharge Activity: Return to Normal Activity, May Not Drive (while taking narcotic pain medications.) and May Shower May resume sexual activity in: 4-6 weeks Dressing / Incision Call your doctor if your incision/area has: Continuous Slow Oozing, Sudden Increased Bleeding, Increased Pain/ Swelling, Increased Redness and Foul Smelling Discharge Follow Up Care Please Follow Up With: Mari Alcantara MD When: Call [phone] to make an appointment with your doctor in 6 weeks. If you had elevated blood pressure or 4th degree laceration, you will need to be seen in 2 weeks. Test Results: Test results from this visit will be discussed in further detail at your follow-up appointment, if applicable. Discharge Plan Admission Admit Date/Time: 05/05/21 02:40 Primary Reason for Your Visit: delivery Attending Provider: Mari Alcantara Primary Care Provider: Meena Mayen Discharge Orders/Prescriptions Prescriptions: No Action hydroxyzine pamoate [Vistaril] 50 mg capsule 50 mg PO TID-QID PRN (Reason: anxiety) Qty: 90 RF: 4 epinephrine 0.3 MG syringe 1 injectable IM X1 PRN (Reason: Allergies) RF: 0 clindamycin HCl 300 mg Capsule 300 mg PO TID RF: 0 prednisone 10 mg Tablets,Dose Pack 10 mg PO DAILY RF: 0 Referrals / Follow Up: Meena Mayen MD [Primary Care Provider] - Mari Alcantara MD [STAFF PHYSICIAN] - Disposition Disposition (needs filled in before D/C Order can be placed): Home, Self Care
[2021-05-05] MEDS: Hydrocortisone 2.5% Crm 1 APPLIC TOPICAL (13:07)
[2021-05-05] MEDS: hydrOXYzine PAM 25 MG Capsule 50 MG PO ×2 (13:09→21:48)
[2021-05-05] MEDS: 0.9% Saline Lock 10 ML Syringe IV (13:09)
[2021-05-05] MEDS: predniSONE 10 MG Tablet 20 MG PO (13:10)
[2021-05-06] VITALS: BP 112/70; PULSE 68; RESP 18; TEMP 35.8
[2021-05-06 04:10] VITALS: BP 106/63; PULSE 68; RESP 16; TEMP 36.2
--- NOTE | 2021-05-06 08:01 | PCM.PN.OB ---
Subjective Subjective Patient doing well, headache this AM. Tolerating PO. Ambulating and voiding without difficulty. feeding well. Denies chest pain, shortness of breath, calf pain/swelling, fevers, chills, lightheadedness. Objective Data Objective Data Vital Signs: Vital Signs Temp Pulse Resp BP Pulse Ox 97.1 F L 68 16 106/63 99 05/06/21 04:10 05/06/21 04:10 05/06/21 04:10 05/06/21 04:10 05/05/21 07:18 Oxygen Delivery Method Room Air Weight: 251 lb 1.704 oz Body Mass Index (BMI) 41.8 Intake & Output: Intake and Output for Last 24 Hours 05/04/21 05/05/21 05/06/21 23:59 23:59 23:59 Intake Total 2160.50 / 2160.50 Output Total 2049 / 2049 Balance 110.50 / 110.50 Lab / Micro Data Result Diagrams: 05/05/21 03:00 Micro: Microbiology 05/05/21 03:00 Mucosa - Nose SARS-CoV-2 Antigen (Rapid) - Final Physical Exam Const alert and oriented x3 HEENT normocephalic Eyes PERRL Neck full ROM Resp normal respiratory effort GI soft to palpation GI Narrative: FF below U Assessment & Plan (1) Vaginal after : COMMENT: 39 SM Emaline (2) Headache after spinal puncture: PLAN: s/p VAVD PPD # 1 1. routine post delivery care 2. breast feeding- support given 3. rh positive 4. rubella immune 5. Nursing staff aware of H/A. Reviewed with patient management 6. Home today
[2021-05-06] MEDS: Naproxen 500 MG Tablet PO (08:11)
[2021-05-06 08:20] VITALS: BP 111/23; PULSE 75; RESP 18; TEMP 36.1
[2021-05-06] MEDS: Clindamycin HCl 150 MG Capsule 300 MG PO (10:00)
[2021-05-06] MEDS: predniSONE 10 MG Tablet 20 MG PO (10:00)
[2021-05-06 12:59] VITALS: BP 111/75; PULSE 90; RESP 18; TEMP 36.2
== END 2021-05-06 14:40 | disposition home or self-care (01) | DRG 560 ==
LOC: WPOUT 02:41 → WP 02:41
PROVIDERS: Admitting Provider Obstetrics & Gynecology; PCP Internal Medicine; Referring Provider Obstetrics & Gynecology; Visit Provider Obstetrics & Gynecology
DX: O69.81X0 Labor and delivery complicated by cord around neck, without compression, not applicable or unspecified (principal); O70.0 First degree perineal laceration during delivery; O89.4 Spinal and epidural anesthesia-induced headache during the puerperium; Z3A.38 38 weeks gestation of pregnancy; Z37.0 Single live birth
CPT/HCPCS: 59025; 59050; 84112; 85025; 86850; 86900; 86901; 87426; 99218; J7120; A4216; G0378

== ENCOUNTER → 2021-07-27 09:52 | Outpatient (CLI) | payer MEDICAID, SELFPAY ==
--- NOTE | 2021-07-27 09:54 | US_ITS ---
STUDY: ULTRASOUND OF THE FEMALE PELVIS - COMPLETE REASON FOR EXAM: Female, 31 years old. Two-month history of abnormal uterine bleeding and pelvic pain. The patient is status post 2 1/2 months . LMP: 07/04/2021. TECHNIQUE: Transabdominal and Transvaginal TECHNICAL QUALITY: Adequate. COMPARISON: None. FINDINGS: The uterus is anteverted and is in a midline position. The uterus measures 9.1 cm x 6.6 cm x 5 cm. A small amount of fluid is seen within the cervical canal. The endometrium measures 9 mm in thickness, and is hyperechoic. There is no demonstrated endometrial mass. There is no demonstrated myometrial mass. I.U.D. - The patient does not have an I.U.D. The right ovary is visualized. The right ovary measures 2.7 cm x 2.8 cm x 1.5 cm. There is no right ovarian cyst or ovarian mass. There is no visualized right adnexal mass or complex lesion. There is normal arterial and normal venous vascularity. The left ovary is visualized. The left ovary measures 4.2 cm x 4.6 cm x 2.4 cm. 2 cysts are seen within the left ovary. The larger measures 2.5 cm x 2.5 cm x 1.3 cm. A septation is seen within it. There is no visualized left adnexal mass or complex lesion. There is normal arterial and normal venous vascularity. There is no fluid in the cul-de-sac. The pre void volume of the bladder was 546 ml. US/Transvaginal Non- IMPRESSION: There are 2 cysts seen in the left ovary. Electronically Signed: David Rosario MD at 13:23 EDT , Service support ,
--- NOTE | 2021-07-27 09:54 | US_ITS ---
STUDY: ULTRASOUND OF THE FEMALE PELVIS - COMPLETE REASON FOR EXAM: Female, 31 years old. Two-month history of abnormal uterine bleeding and pelvic pain. The patient is status post 2 1/2 months . LMP: 07/04/2021. TECHNIQUE: Transabdominal and Transvaginal TECHNICAL QUALITY: Adequate. COMPARISON: None. FINDINGS: The uterus is anteverted and is in a midline position. The uterus measures 9.1 cm x 6.6 cm x 5 cm. A small amount of fluid is seen within the cervical canal. The endometrium measures 9 mm in thickness, and is hyperechoic. There is no demonstrated endometrial mass. There is no demonstrated myometrial mass. I.U.D. - The patient does not have an I.U.D. The right ovary is visualized. The right ovary measures 2.7 cm x 2.8 cm x 1.5 cm. There is no right ovarian cyst or ovarian mass. There is no visualized right adnexal mass or complex lesion. There is normal arterial and normal venous vascularity. The left ovary is visualized. The left ovary measures 4.2 cm x 4.6 cm x 2.4 cm. 2 cysts are seen within the left ovary. The larger measures 2.5 cm x 2.5 cm x 1.3 cm. A septation is seen within it. There is no visualized left adnexal mass or complex lesion. There is normal arterial and normal venous vascularity. There is no fluid in the cul-de-sac. The pre void volume of the bladder was 546 ml. US/Pelvic (Non ) IMPRESSION: There are 2 cysts seen in the left ovary. Electronically Signed: David Rosario MD at 13:23 EDT , Service support ,
== END ==
PROVIDERS: PCP Internal Medicine; Referring Provider Obstetrics & Gynecology; Visit Provider Obstetrics & Gynecology
DX: N93.9 Abnormal uterine and vaginal bleeding, unspecified (principal); R10.2 Pelvic and perineal pain
CPT/HCPCS: 76830; 76856; 93976

== ENCOUNTER → 2021-08-18 08:53 | Outpatient (CLI) | payer MEDICAID, SELFPAY ==
[2021-08-18 09:12] LABS: Absolute Lymphocyte Count 1.58 X10^3/uL (0.83-4.51); Absolute Neutrophil Count 3.1 X10^3/uL (2.0-7.7); Basophil# 0.04 X10^3/uL; Basophil% 0.8 % (0-1); Eosinophil# 0.02 X10^3/uL; Eosinophils% 0.4 % (0-5); Hematocrit 45.5 % (37-47); Hemoglobin 14.3 g/dL (12.0-15.0); Lymphocyte # 1.58 X10^3/ul (0.83-4.51); Lymphocyte % 30.1 % (19-41); Mean Corp Hgb Conc 31.4 g/dL (32-36); Mean Corpuscular Hgb 27.7 pg (27.0-32.0); Mean Platelet Vol. 10.4 fl (6.2-12.0); Monocyte# 0.54 X10^3/uL; Monocyte% 10.3 % (0-10); NRBC Flagged by Analyzer 0 % (0-5); Neutrophil # 3.06 X10^3/uL (2.7-7.7); Neutrophil % 58.2 % (47-70); Platelet Count 228 K/mm3 (150-450); RBC Distribution Width CV 12.9 % (11.6-14.6); RBC Distribution Width SD 42.4 fl (35.1-43.9); Red Blood Count 5.17 M/mm3 (4.2-5.4); White Blood Count 5.3 K/mm3 (4.4-11.0)
[2021-08-18 09:21] LABS: Color, Urine Yellow (Yellow); Glucose, Dipstick Normal (Normal); Ketone-Dipstick Negative (Negative); Leukocyte Esterase-Dipstick Negative /ul (Negative); Nitrite-Dipstick Negative (Negative); Occult Blood-Urine Negative /ul (Negative); Protein-Dipstick Negative (Negative); Urine Bilirubin Dipstick Negative (Negative); Urine Clarity Sl. Cloudy (Clear); Urine Urobilinogen Normal (Normal)
[2021-08-18 09:56] LABS: ALB/GLOB Ratio 1.1 RATIO (0.9-2.4); AST(SGOT) 15 U/L (15-37); Alanine Aminotransfer ALT/SGPT 23 U/L (13-56); Albumin, Serum 3.9 g/dL (3.2-5.0); Alkaline Phosphatase 57 U/L (45-117); Anion Gap 9 (5-15); BUN 18 mg/dL (7-18); BUN/Creat Ratio 19.1 RATIO (10-20); Chloride 106 mmol/L (98-107); Cholesterol 153 mg/dL (200); Creatinine, Serum 0.94 mg/dL (0.55-1.02); EST Glomerular Filtration Rate 73 mL/min (>60); Est Glom Filt Rate - Afr Amer 88 mL/min (>60); Globulin 3.6 g/dL (2.2-4.2); Glucose 94 mg/dL (74-106); High Density Lipoprotein 65 mg/dL; Magnesium 2.1 mg/dL (1.6-2.6); Potassium 4.1 mmol/L (3.5-5.1); Protein, Total 7.5 g/dL (6.4-8.2); Sodium Level 141 mmol/L (136-145); T4 Free Direct 0.94 ng/dL (0.76-1.46); Triglycerides 87 mg/dL; Very Low Density Lipoprotein 17 mg/dL (5-40)
[2021-08-21 12:38] LABS: Thyroid Stim Hormone (TSH) 1.61 uIU/mL (0.358-3.74)
== END ==
PROVIDERS: PCP Internal Medicine; Referring Provider Internal Medicine; Visit Provider Internal Medicine
DX: Z00.00 Encounter for general adult medical examination without abnormal findings (principal); R00.2 Palpitations; E66.01 Morbid (severe) obesity due to excess calories
CPT/HCPCS: 36415; 80053; 80061; 81002; 83735; 84439; 84443; 84481; 85025

== ENCOUNTER → 2021-09-21 15:26 | Outpatient (CLI) | payer MEDICAID, SELFPAY ==
--- NOTE | 2021-09-21 15:59 | US_ITS ---
HISTORY: Pelvic pain, left ovarian cyst follow-up, rule out torsion. EXAMINATION: US Pelvis Non OB Complete With Transvaginal Imaging TECHNIQUE: Transvaginal (for optimal evaluation of the adnexa) pelvic ultrasound was performed. Grayscale, spectral waveform, and color flow Doppler evaluation of the adnexa. COMPARISON: Pelvic ultrasound from 07/27/21 FINDINGS: Anteverted uterus measures 7.9 x 4.3 x 5.9 cm. No discrete uterine mass. Endometrial stripe 12 mm diameter. Small cervical nabothian cysts. Trace free fluid within posterior cul-de-sac. No adnexal mass identified. Bilateral ovaries demonstrate normal color Doppler flow and spectral Doppler waveforms. Unremarkable right ovary measures 2.1 x 1.3 x 1.7 cm. Left ovary measures 4 x 2.5 x 3.1 cm there are a few anechoic left ovarian follicles. Separate small complex and heterogeneous echotexture left ovarian cyst measures 1.9 x 1.2 x 1.7 cm. US/Transvaginal Non- IMPRESSION: 1. Small residual complex left ovarian cyst, likely involuted follicle and/or subacute hemorrhagic cyst/follicle measuring up to 1.9 cm diameter. Ovoid anechoic 2.5 cm left ovarian cyst demonstrated on prior exam. No evidence of ovarian torsion. 2. Trace free pelvic fluid. at 0436 Reported and signed by: Jean Neal MD Electronically Signed: Jean Neal MD at 4:35 EST Tel , Service support ,
--- NOTE | 2021-09-21 15:59 | US_ITS ---
HISTORY: Pelvic pain, left ovarian cyst follow-up, rule out torsion. EXAMINATION: US Pelvis Non OB Complete With Transvaginal Imaging TECHNIQUE: Transvaginal (for optimal evaluation of the adnexa) pelvic ultrasound was performed. Grayscale, spectral waveform, and color flow Doppler evaluation of the adnexa. COMPARISON: Pelvic ultrasound from 07/27/21 FINDINGS: Anteverted uterus measures 7.9 x 4.3 x 5.9 cm. No discrete uterine mass. Endometrial stripe 12 mm diameter. Small cervical nabothian cysts. Trace free fluid within posterior cul-de-sac. No adnexal mass identified. Bilateral ovaries demonstrate normal color Doppler flow and spectral Doppler waveforms. Unremarkable right ovary measures 2.1 x 1.3 x 1.7 cm. Left ovary measures 4 x 2.5 x 3.1 cm there are a few anechoic left ovarian follicles. Separate small complex and heterogeneous echotexture left ovarian cyst measures 1.9 x 1.2 x 1.7 cm. US/Pelvic (Non ) IMPRESSION: 1. Small residual complex left ovarian cyst, likely involuted follicle and/or subacute hemorrhagic cyst/follicle measuring up to 1.9 cm diameter. Ovoid anechoic 2.5 cm left ovarian cyst demonstrated on prior exam. No evidence of ovarian torsion. 2. Trace free pelvic fluid. at 0436 Reported and signed by: Jean Neal MD Electronically Signed: Jean Neal MD at 4:35 EST Tel , Service support ,
== END ==
PROVIDERS: PCP Internal Medicine; Referring Provider Obstetrics & Gynecology; Visit Provider Obstetrics & Gynecology
DX: N83.202 Unspecified ovarian cyst, left side (principal)
CPT/HCPCS: 76830; 76856; 93976

== ENCOUNTER → 2024-03-23 | Outpatient (CLI) | payer MEDICAID, SELFPAY ==
[2024-03-23 10:57] LABS: hCG Titer Quant., Serum 38268 mIU/mL (1-3)
== END | disposition home or self-care (01) ==
PROVIDERS: PCP Internal Medicine; Referring Provider Obstetrics & Gynecology; Visit Provider Obstetrics & Gynecology
DX: N91.2 Amenorrhea, unspecified (principal)
CPT/HCPCS: 36415; 84702

== ENCOUNTER → 2024-03-25 | Outpatient (CLI) | payer MEDICAID, SELFPAY ==
[2024-03-25 10:56] LABS: hCG Titer Quant., Serum 50722 mIU/mL (1-3)
== END | disposition home or self-care (01) ==
PROVIDERS: PCP Internal Medicine; Visit Provider Obstetrics & Gynecology
DX: N91.2 Amenorrhea, unspecified (principal)
CPT/HCPCS: 36415; 84702

== ENCOUNTER → 2024-03-27 | Outpatient (CLI) | payer MEDICAID, SELFPAY | END | disposition home or self-care (01) | LOC: LABSPEC 11:31 | PROVIDERS: PCP Internal Medicine; Referring Provider Advanced Practice Midwife; Visit Provider Advanced Practice Midwife | DX: R30.9 Painful micturition, unspecified (principal) | CPT/HCPCS: 87077; 87086; 87088 ==

== ENCOUNTER 2024-03-29 10:56 | Emergency (ER) | payer MEDICAID, SELFPAY ==
[2024-03-29 10:57] VITALS: BP 123/71; PULSE 79; RESP 16; TEMP 35.9; O2SAT 100; BMI 32.1
--- NOTE | 2024-03-29 11:08 | US_ITS ---
STUDY: FIRST TRIMESTER OBSTETRICAL ULTRASOUND REASON FOR EXAM: Female, 33 years old pain, bleeding LMP: February 07, 2024. TECHNIQUE: Transvaginal TECHNICAL QUALITY: Adequate. PRIOR ULTRASOUND: None. FINDINGS: There is visualization of a single gestational sac in a normal intrauterine position. The mean sac diameter (MSD) measures 2.7 cm, indicating an estimated gestational age (EGA) of 7 weeks, 5 days. The gestational sac shape is within normal limits. There is a visualized yolk sac. The yolk sac measures 3.4 mm. The placenta is non-visualized. There is visualization of a live embryo. The crown-rump length (CRL) measures 1.1 cm, indicating an estimated gestational age (EGA) of 7 weeks, 2 days. There is demonstrated cardiac activity with a heart rate of 154 bpm. The estimated gestation age (EGA) by LMP is 7 weeks, 2 days. The estimated date of delivery (LIBAN) by LMP is November 13, 2024. The estimated gestation age (EGA) by US is 7 weeks, 4 days. The estimated date of delivery (LIBAN) by US is November 11, 2024. The uterus measures 10.3 cm x 7.1 cm x 5.6 cm. There is no demonstrated uterine fibroid. The cervix is closed. The right ovary was not well-visualized. The left ovary measures 3.5 cm x 2.3 cm x 2.6 cm. There is a 2.8 cm x 2 cm x 1.8 cm cyst in the left ovary. There is no visualized left adnexal mass or complex lesion. There is no fluid in the cul de sac. US/Transvaginal w/Preg US IMPRESSION: Single live intrauterine gestation with mean gestational age of 7 weeks and 4 days. Small cyst in the left ovary. Electronically Signed: David Rosario MD at 12:47 EDT ,
--- NOTE | 2024-03-29 11:09 | ED.VIS.FEGU ---
HPI HPI - Female History of Present Illness Chief Complaint: Vag Bld, Preg Detail of Chief Complaint: and vaginal bleeding Narrative Narrative: Patient presents to the emergency department complaint of vaginal bleeding in . Patient states that she had some spotting and some brown discharge that started 6 days ago. Over the last several days she has had intermittent sharp stabbing pains mostly to her right lower abdomen. Still has small amount of brown discharge. She denies urinary Venu frequency or urgency. She denies hematuria. Patient believes she is about 7 weeks . Her last menstrual period was February 06. Patient is G5, P3. Patient called her SIENE MAKER who instructed her to come to the emergency department get evaluated. 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 ) Home Medications ?Medication ?Instructions ?Recorded ?Last Taken ?Type epinephrine 0.3 mg/0.3 mL 1 injectable IM X1 PRN Allergies 11/17/19 Unknown History injection, auto-injector hydroxyzine pamoate 50 mg capsule 50 mg PO TID-QID PRN anxiety #90 04/30/21 05/04/21 03:00 Rx (Vistaril) caps Allergy/AdvReac Type Severity Reaction Status Date / Time amoxicillin Allergy Severe Anaphylaxis Verified 03/29/24 10:56 cephalexin (From Keflex) Allergy Severe Anaphylaxis Verified 03/29/24 10:56 Penicillins Allergy Severe Anaphylaxis Verified 03/29/24 10:56 sulfamethoxazole (From Allergy Severe Anaphylaxis Verified 03/29/24 10:56 Bactrim) trimethoprim (From Bactrim) Allergy Severe Anaphylaxis Verified 03/29/24 10:56 bee venom protein (honey bee) Allergy Anaphylaxis Verified 03/29/24 10:56 egg Allergy Abd Verified 03/29/24 10:56 cramps/diarrhea gluten Allergy Abd Verified 03/29/24 10:56 cramps/diarrhea honey Allergy Anaphylaxis Verified 03/29/24 10:56 lactose Allergy Abd Verified 03/29/24 10:56 cramps/diarrhea Family History Grandmother Breast cancer, Onset Age: 70 grandmother and great grandmother Surgical History History of hand surgery History of tonsillectomy and adenoidectomy Previous section Social History Smoking Status: Never smoker alcohol intake: never substance use type: does not use caffeine: Yes what type of physical activity do you participate in: walking seatbelt use: always do you feel safe at home: Yes additional social history: Kurtis Aviles Patient stays at home ROS ROS ED Review of Systems ROS Unobtainable: other Constitutional Constitutional ED: Reports lethargy; Denies chills, fever(s), sweats or weight loss Eyes Eyes: Denies blurry vision, change in vision or diplopia ENT ENT ED: Denies rhinorrhea or sore throat Cardiovascular Cardiovascular: Reports chest pain and racing heartbeat; Denies orthopnea Respiratory/Chest Respiratory/Chest: Reports dyspnea and dyspnea on exertion; Denies cough, orthopnea or sputum Gastrointestinal Gastrointestinal: Reports abdominal pain; Denies diarrhea, nausea or vomiting Genitourinary Genitourinary ED: Reports vaginal bleeding and vaginal discharge; Denies dysuria, hematuria or urinary frequency Musculoskeletal Musculoskeletal: Denies arthralgias, back pain, myalgias or neck pain Integumentary Denies abscess, Abrasions or rash Neurologic Neurologic: Denies headache(s) or weakness Psychiatric Psychiatric: Denies anxiety, depression or suicidal thoughts Endocrine Endocrinology: Denies polydipsia, polyphagia or polyuria Hematologic/Lymphatic Hematologic/Lymphatic: Denies easy bleeding, easy bruising or lymphadenopathy Allergic/Immunologic Allergic/Immunologic ED: Denies mouth swelling, tongue swelling or urticaria EXAM Physical Exam Const Vital Signs: 03/29/24 10:57 Temperature 96.6 F L Temperature Source Temporal Pulse Rate 79 Respiratory Rate 16 Blood Pressure 123/71 H Blood Pressure Mean 88 Pulse Ox 100 Oxygen Delivery Method Room Air Positive well nourished and well developed General Appearance ED: well developed and NAD HEENT Reports TM's clear and moist mucous membranes normocephalic and atraumatic; Negative for trauma or tenderness Tympanic Membrane ED: Yes TM's clear Eyes PERRL and EOMs intact bilaterally General Eye ED: Negative for pale conjunctiva or scleral icterus Neck no lymphadenopathy, supple and no JVD General: Negative for tenderness Chest Wall inspection of chest normal and palpation of chest normal Chest: Negative for tenderness Resp normal respiratory effort and clear to auscultation bilaterally Effort and Inspection: Negative for respiratory distress or pain with movement Auscultation: Negative for rhonchi, wheezes or diminished lung sounds Cardio regular rate, regular rhythm, S1 normal heart sound, S2 normal heart sound and no murmurs Peripheral Pulses: pulses 2+ throughout GI normal to inspection, nondistended, normoactive bowel sounds, soft to palpation, non-tender, non-distended and no masses Speculum Exam - Vagina: vaginal bleeding and vaginal discharge Back/Spine no CVA tenderness and no thoracic nor lumbar tenderness Extremity normal to inspection General Extremety ED: Negative for edema General Extremity: Negative for edema Neuro oriented x3, CN's II-XII intact bilaterally, no sensory deficits noted and gait normal Sensorium / Orientation: awake, alert, oriented to person, oriented to place and oriented to time Motor Exam: strength 5/5 throughout and strength abnormal Psych mental status grossly normal Skin no rashes or lesions noted and no wounds MDM MDM MDM Narrative Medical decision making narrative: Patient presents with right lower pelvic pain and . Had some bleeding 4 days ago now having small more brownish discharge. Referred to ER by SIENE MAKER. IV line established. CBC with differential obtained showed a normal white count of 7.2 with hemoglobin 13.8 and platelet count 228. Quantitative hCG was 84,651. Urinalysis was normal. Patient blood type is O+. Patient had a ultrasound pelvic to evaluate further and this showed a single live intrauterine with heart rate of 154 with gestational age of 7 weeks. Clinically patient looks well. Will discuss case with her SIENE MAKER. Lab Data Attestation: I reviewed the patient's lab results. Labs: Laboratory Results - last 24 hr 03/29/24 03/29/24 11:30 11:33 WBC 7.2 RBC 5.19 Hgb 13.8 Hct 43.4 MCV 83.6 MCH 26.6 L MCHC 31.8 L RDW Std Deviation 43.8 RDW Coeff of Razia 14.3 Plt Count 228 MPV 9.6 Immature Gran % (Auto) 0.300 Neut % (Auto) 67.1 Lymph % (Auto) 23.2 Luna % (Auto) 8.6 Eos % (Auto) 0.4 Baso % (Auto) 0.4 Absolute Neuts (auto) 4.9 Absolute Lymphs (auto) 1.68 Nucleated RBC % 0 HCG, Quant 47766 H Urine Color Yellow Urine Clarity Clear Urine pH 6.5 Ur Specific [place] 1.010 Urine Protein Negative Urine Glucose (UA) Normal Urine Ketones 5 H Urine Occult Blood Negative Urine Nitrite Negative Urine Bilirubin Negative Urine Urobilinogen Normal Ur Leukocyte Esterase Negative Urine RBC 0 SEEN Urine WBC 0-5 SEEN Ur Squamous Epith Cells 0 SEEN Urine Bacteria 0 SEEN Urine Mucus 0 SEEN Radiography Diagnostic Testing: Clinical Impression(s) from Imaging Studies Obstetrics Ultrasound 03/29/24 11:08 IMPRESSION: Single live intrauterine gestation with mean gestational age of 7 weeks and 4 days. Small cyst in the left ovary. Electronically Signed: David Rosario MD at 12:47 EDT , Discharge Plan Triage Chief Complaint: Vag Bld, Preg ED Provider: Codey Alarcon Dx/Rx/DC Orders Clinical Impression: , threatened, Pelvic pain Instructions: Miscarriage Threatened , ED Pelvic Pain, Unknown Cause Prescriptions: No Action hydroxyzine pamoate [Vistaril] 50 mg capsule 50 mg PO TID-QID PRN (Reason: anxiety) Qty: 90 4RF epinephrine 0.3 MG syringe 1 injectable IM X1 PRN (Reason: Allergies) Patient Comments: INJECT CONTENTS OF 1 PEN NEEDED FOR ALLERGIC REACTION MAY REPEAT ONCE DIRECTED Primary Care Provider: Meena Mayen Referrals: Meena Mayen MD [Primary Care Provider] - Mari Alcantara MD [Med Staff - Active Staff] - Activity Restrictions/Additional Instructions: Keep your appointment with Dr. Jean Payton as scheduled. Return for heavy bleeding, severe pain, fever, or condition worsening way. Print Language: Citizen Of [place] Disposition Disposition: Home, Self Care
[2024-03-29 11:34] LABS: Absolute Lymphocyte Count 1.68 X10^3/uL (0.83-4.51); Absolute Neutrophil Count 4.9 X10^3/uL (2.0-7.7); Basophil# 0.03 X10^3/uL; Basophil% 0.4 % (0-1); Eosinophil# 0.03 X10^3/uL; Eosinophils% 0.4 % (0-5); Hematocrit 43.4 % (37-47); Hemoglobin 13.8 g/dL (12.0-15.0); Lymphocyte # 1.68 X10^3/ul (0.83-4.51); Lymphocyte % 23.2 % (19-41); Mean Corp Hgb Conc 31.8 g/dL (32-36); Mean Corpuscular Hgb 26.6 pg (27.0-32.0); Mean Corpuscular Volume 83.6 fL (81-99); Mean Platelet Vol. 9.6 fl (6.2-12.0); Monocyte# 0.62 X10^3/uL; Monocyte% 8.6 % (0-10); NRBC Flagged by Analyzer 0 % (0-5); Neutrophil # 4.85 X10^3/uL (2.7-7.7); Neutrophil % 67.1 % (47-70); Platelet Count 228 K/mm3 (150-450); RBC Distribution Width CV 14.3 % (11.6-14.6); RBC Distribution Width SD 43.8 fl (35.1-43.9); Red Blood Count 5.19 M/mm3 (4.2-5.4); White Blood Count 7.2 K/mm3 (4.4-11.0)
[2024-03-29 11:40] LABS: Bacteria 0 SEEN /hpf (None Seen); Mucous, Urine 0 SEEN /hpf (<or=2+); Red Blood Cells-Urine 0 SEEN /hpf (0-5); Squamous Epithelial Cells - UA 0 SEEN /hpf (5-10)
[2024-03-29 11:53] LABS: Color, Urine Yellow (Yellow); Glucose, Dipstick Normal (Normal); Ketone-Dipstick 5 mg/dl (Negative); Leukocyte Esterase-Dipstick Negative /ul (Negative); Nitrite-Dipstick Negative (Negative); Occult Blood-Urine Negative /ul (Negative); Protein-Dipstick Negative (Negative); Urine Bilirubin Dipstick Negative (Negative); Urine Clarity Clear (Clear); Urine Urobilinogen Normal (Normal); Urine pH 6.5 (5.0 - 8.0)
[2024-03-29 12:03] LABS: White Blood Cells 0-5 SEEN /hpf (0-5)
[2024-03-29] MEDS: 0.9% Normal Saline (1000mL) 1,000 ML 999 ML IV (12:04)
[2024-03-29 12:06] LABS: hCG Titer Quant., Serum 84651 mIU/mL (1-3)
[2024-03-29 12:56] VITALS: BP 122/86; PULSE 74; RESP 16; O2SAT 98
[2024-03-29 13:48] VITALS: BP 122/86; PULSE 74; RESP 16; TEMP 36.2; O2SAT 98
== END 2024-03-29 13:51 | disposition home or self-care (01) ==
PROVIDERS: Emergency Provider Emergency Medicine; PCP Internal Medicine; Visit Provider Emergency Medicine
DX: O20.0 Threatened abortion (principal); O26.891 Other specified pregnancy related conditions, first trimester; Z3A.01 Less than 8 weeks gestation of pregnancy; R10.2 Pelvic and perineal pain; O09.521 Supervision of elderly multigravida, first trimester; R06.02 Shortness of breath
CPT/HCPCS: 76817; 81001; 84702; 85025; 96360; 99282; J7030; A4216

== ENCOUNTER → 2024-04-13 | Outpatient (CLI) | payer BC, SELFPAY ==
[2024-04-16 21:07] LABS: Chlamydia By Nucleic Acid AMP Negative (Negative); Gonococcus By Nucleic Acid AMP Negative (Negative)
== END | disposition home or self-care (01) ==
LOC: LABSPEC 17:04
PROVIDERS: PCP Internal Medicine; Referring Provider Advanced Practice Midwife; Visit Provider Advanced Practice Midwife
DX: O09.90 Supervision of high risk pregnancy, unspecified, unspecified trimester (principal); Z3A.00 Weeks of gestation of pregnancy not specified
CPT/HCPCS: 87491; 87591

== ENCOUNTER → 2024-04-26 | Outpatient (CLI) | payer MEDICAID, SELFPAY ==
[2024-04-26 11:56] LABS: Absolute Lymphocyte Count 1.56 X10^3/uL (0.83-4.51); Absolute Neutrophil Count 5.3 X10^3/uL (2.0-7.7); Basophil# 0.04 X10^3/uL; Basophil% 0.5 % (0-1); Eosinophil# 0.05 X10^3/uL; Eosinophils% 0.7 % (0-5); Hematocrit 38.3 % (37-47); Hemoglobin 12.3 g/dL (12.0-15.0); Lymphocyte # 1.56 X10^3/ul (0.83-4.51); Lymphocyte % 20.7 % (19-41); Mean Corp Hgb Conc 32.1 g/dL (32-36); Mean Corpuscular Hgb 26.8 pg (27.0-32.0); Mean Corpuscular Volume 83.4 fL (81-99); Mean Platelet Vol. 9.7 fl (6.2-12.0); Monocyte# 0.53 X10^3/uL; NRBC Flagged by Analyzer 0 % (0-5); Neutrophil # 5.34 X10^3/uL (2.7-7.7); Neutrophil % 70.8 % (47-70); Platelet Count 197 K/mm3 (150-450); RBC Distribution Width CV 14.6 % (11.6-14.6); RBC Distribution Width SD 44.6 fl (35.1-43.9); Red Blood Count 4.59 M/mm3 (4.2-5.4); White Blood Count 7.5 K/mm3 (4.4-11.0)
[2024-04-26 12:49] LABS: HIV - WCH Non-Reactive (Nonreactive); Hepatitis B Surface Antigen Non-Reactive (Nonreactive); Hepatitis C Antibody Non-Reactive (Nonreactive); Rubella IgG Reactive (Nonreactive); Syphilis Antibodies Non-reactive
== END | disposition home or self-care (01) ==
PROVIDERS: PCP Internal Medicine; Referring Provider Advanced Practice Midwife; Visit Provider Advanced Practice Midwife
DX: Z34.90 Encounter for supervision of normal pregnancy, unspecified, unspecified trimester (principal); Z3A.00 Weeks of gestation of pregnancy not specified; O99.210 Obesity complicating pregnancy, unspecified trimester; E66.9 Obesity, unspecified
CPT/HCPCS: 36415; 83036; 85025; 86703; 86762; 86780; 86803; 86850; 86900; 86901; 87340

== ENCOUNTER → 2024-05-09 | Outpatient (CLI) | payer MEDICAID, SELFPAY ==
[2024-05-11 13:08] LABS: Lead, Blood Adult 16+yrs < 1.0 ug/dL (0.0-3.4)
== END | disposition home or self-care (01) ==
LOC: LAB 16:35
PROVIDERS: PCP Internal Medicine; Visit Provider Obstetrics & Gynecology
DX: Z36.3 Encounter for antenatal screening for malformations (principal)
CPT/HCPCS: 36415; 83655

== ENCOUNTER → 2024-06-21 | Outpatient (CLI) | payer MEDICAID, SELFPAY ==
[2024-06-21 12:51] LABS: ROM Internal Control Test YES-OK TO RESULT pt. (Internal QC); ROM Patient Test Negative (Negative); Record Kit Lot#, ROM+ K1866
== END | disposition home or self-care (01) ==
PROVIDERS: PCP Internal Medicine; Referring Provider Nurse Practitioner Women's Health; Visit Provider Nurse Practitioner Women's Health
DX: N89.8 Other specified noninflammatory disorders of vagina (principal)
CPT/HCPCS: 84112

== ENCOUNTER → 2024-08-09 | Outpatient (CLI) | payer MEDICAID, SELFPAY ==
[2024-08-09 09:51] LABS: Absolute Lymphocyte Count 1.28 X10^3/uL (0.83-4.51); Absolute Neutrophil Count 8.3 X10^3/uL (2.0-7.7); Basophil# 0.04 X10^3/uL; Basophil% 0.4 % (0-1); Eosinophil# 0.06 X10^3/uL; Eosinophils% 0.6 % (0-5); Hematocrit 38.7 % (37-47); Hemoglobin 12.5 g/dL (12.0-15.0); Lymphocyte # 1.28 X10^3/ul (0.83-4.51); Lymphocyte % 12.6 % (19-41); Mean Corp Hgb Conc 32.3 g/dL (32-36); Mean Corpuscular Hgb 27.7 pg (27.0-32.0); Mean Corpuscular Volume 85.8 fL (81-99); Mean Platelet Vol. 9.7 fl (6.2-12.0); Monocyte# 0.45 X10^3/uL; Monocyte% 4.4 % (0-10); NRBC Flagged by Analyzer 0 % (0-5); Neutrophil # 8.28 X10^3/uL (2.7-7.7); Neutrophil % 81.4 % (47-70); Platelet Count 182 K/mm3 (150-450); RBC Distribution Width CV 14.6 % (11.6-14.6); RBC Distribution Width SD 46.1 fl (35.1-43.9); Red Blood Count 4.51 M/mm3 (4.2-5.4); White Blood Count 10.2 K/mm3 (4.4-11.0)
[2024-08-09 10:23] LABS: Glucose Challenge Gest 1H 50g 159 mg/dL (70-140)
[2024-08-09 10:53] LABS: HIV - WCH Non-Reactive (Nonreactive); Syphilis Antibodies Non-reactive
== END | disposition home or self-care (01) ==
LOC: LAB 09:00
PROVIDERS: PCP Internal Medicine; Referring Provider Obstetrics & Gynecology; Visit Provider Obstetrics & Gynecology
DX: O09.92 Supervision of high risk pregnancy, unspecified, second trimester (principal); Z13.1 Encounter for screening for diabetes mellitus; Z3A.00 Weeks of gestation of pregnancy not specified
CPT/HCPCS: 36415; 82950; 85025; 86703; 86780

== ENCOUNTER 2024-08-10 19:35 | Outpatient (CLI) | payer MEDICAID, SELFPAY ==
[2024-08-10 19:51] VITALS: PULSE 108; O2SAT 96
[2024-08-10 19:52] VITALS: BP 143/102
[2024-08-10 19:56] VITALS: PULSE 112; O2SAT 96
[2024-08-10 19:58] VITALS: BMI 36.6
[2024-08-10 20:02] VITALS: RESP 20; TEMP 37.3
[2024-08-10 20:08] VITALS: BP 129/75; PULSE 98
[2024-08-10] MEDS: Lactated Ringers 1,000 ML 999 ML IV (21:25)
[2024-08-10 21:33] LABS: Absolute Lymphocyte Count 0.97 X10^3/uL (0.83-4.51); Absolute Neutrophil Count 8.5 X10^3/uL (2.0-7.7); Basophil# 0.04 X10^3/uL; Basophil% 0.4 % (0-1); Eosinophil# 0.03 X10^3/uL; Eosinophils% 0.3 % (0-5); Lymphocyte # 0.97 X10^3/ul (0.83-4.51); Lymphocyte % 9.3 % (19-41); Mean Corp Hgb Conc 32.4 g/dL (32-36); Mean Corpuscular Volume 86.4 fL (81-99); Mean Platelet Vol. 9.4 fl (6.2-12.0); Monocyte# 0.77 X10^3/uL; Monocyte% 7.4 % (0-10); NRBC Flagged by Analyzer 0 % (0-5); Neutrophil # 8.53 X10^3/uL (2.7-7.7); Neutrophil % 81.5 % (47-70); Platelet Count 164 K/mm3 (150-450); RBC Distribution Width CV 14.6 % (11.6-14.6); RBC Distribution Width SD 46.5 fl (35.1-43.9); Red Blood Count 4.28 M/mm3 (4.2-5.4); White Blood Count 10.5 K/mm3 (4.4-11.0)
--- NOTE | 2024-08-10 22:03 | OB.TRI.NOTE ---
HPI - General HPI Narrative MARY ELLEN GUZMAN, is a 34 F who presents at 26.3 with decreased FM, diarrhea and abdominal pain. 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 ) depression [place] Anxiety Home Medications ?Medication ?Instructions ?Recorded ?Last Taken ?Type epinephrine 0.3 mg/0.3 mL 1 injectable IM X1 PRN Allergies 11/17/19 Unknown History injection, auto-injector cod liver oil 1 cap PO BID 04/06/24 08/09/24 08:00 History wheat germ oil 45 mg PO BID 04/06/24 08/09/24 08:00 History Allergy/AdvReac Type Severity Reaction Status Date / Time amoxicillin Allergy Severe Anaphylaxis Verified 08/10/24 21:24 cephalexin (From Keflex) Allergy Severe Anaphylaxis Verified 08/10/24 21:24 Penicillins Allergy Severe Anaphylaxis Verified 08/10/24 21:24 sulfamethoxazole (From Allergy Severe Anaphylaxis Verified 08/10/24 21:24 Bactrim) trimethoprim (From Bactrim) Allergy Severe Anaphylaxis Verified 08/10/24 21:24 bee venom protein (honey bee) Allergy Anaphylaxis Verified 08/10/24 21:24 gluten Allergy Abd Verified 08/10/24 21:24 cramps/diarrhea lactose Allergy Abd Verified 08/10/24 21:24 cramps/diarrhea Family History Grandmother Breast cancer, Onset Age: 70 grandmother and great grandmother Surgical History [place] teeth extracted Previous section History of tonsillectomy and adenoidectomy History of hand surgery Social History adopted: No household members: spouse and children number of children: 3 current occupational status: unemployed current occupation: [employer] pets and animals: Yes pets and animals: dog(s) history of recent travel: No sexually active: Yes Smoking Status: Never smoker alcohol intake: never substance use type: does not use diet: other well-balanced diet: daily or most days caffeine: No eating out: rarely or never during the past year weight has: increased > 10 lbs what type of physical activity do you participate in: none suzie/advent: Jehov[employer] Witness seatbelt use: always do you feel safe at home: Yes additional social history: Kurtis Aviles Patient stays at home History 3 Elective abortions Hx Para 3 Spontaneous abortions 1 Hx # Term Pregnancies Ectopic pregnancies Hx # Pregnancies Multiple births # of living children 3 Past Pregnancies Del. Date Name GA/Weeks Outcome Route Bth Weight Gen Labor Lgth Anesthesia Del Locatn Provider FOB Unknown 2014 Yunior 39 live - full term 6lbs Male epidural [place] [facility] [employer] Carlos Unknown 2017 miscarriage 5 spontaneous 12/17/19 Maribel 38 live - full term 6lbs Female spinal [facility] 05/05/21 Emaline 39 live - full term 6lbs 4oz Female epidural 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 ACOG/uptodate education given to patient. [] % likelihood of success per calculator TOLAC consent form signed: [] Plans Covid status: [] Flu vaccine: [] Tdap vaccine: [] Rhogam: [] LARC form signed: [] Problem list reviewed and updated with the most current plan of care details and appropriate orders placed. Relevant counseling for the gestational age provided. Continue routine care and follow up unless otherwise noted in visit notes/problem list details OB Flowsheet Initial Weight: Not Recorded Date <del>?</del> EGA Weight BP Urine Prot <del>?</del> Glucose FHR FuHt Pres Dilation <del>?</del> Effaced St Visit Note 04/13/24 <del>?</del> 9w 3d 191 lb 2 oz 116/75 <del>?</del> 175 <del>?</del> KW- CRL cons with dates. declines NIPT. Desires TOLAC 05/09/24 <del>?</del> 13w 1d 196 lb 117/75 Negative <del>?</del> Negative 155 <del>?</del> sm- no vb lof cramping sm- no vb lof cramping having trouble sleeping. possible lead exposure at home- ordered level. declined genetic screening. discussed mfm scan. 06/06/24 <del>?</del> 17w 1d 200 lb 8 oz 112/64 Negative <del>?</del> Negative 151 <del>?</del> MH-No Vb. Feeling flutters. Denies concerns 06/21/24 <del>?</del> 19w 2d 202 lb 4 oz 119/77 Negative <del>?</del> Negative 161 0 <del>?</del> MH-Work in due to complaint of loss of fluid and thinks loss of mucous plug. No cramping or bleeding. ROM collected 07/05/24 <del>?</del> 21w 2d 206 lb 117/82 Negative <del>?</del> Negative 140 <del>?</del> SM- no vb lof good fm no regualr ctx 08/09/24 <del>?</del> 26w 2d 114/78 Negative <del>?</del> Negative 157 27 <del>?</del> JV- patient declines weigh in today. She drank the glucola drink and plans to have this checked by 9:30 today. She is very nervous about Dr. Alcantara not being available to week of her due date. we discussed. Physical Exam Const alert, oriented x3 and no apparent distress Resp normal respiratory effort, normal air movement, no retractions and no use of accessory muscles Cardio regular rate and regular rhythm GI soft to palpation and non-tender Inspection: Palpation: soft Rectal Exam: deferred no CVA tenderness and external exam normal Bimanual Exam - Vag & Uterus: uterus non-tender and other gravid uterus, normal for gestational age OB / External & Speculum: Negative for herpetic lesions Manual OB Exam: estimated gestational size appropriate and presentation cephalic Amniotic Fluid: no amniotic fluid noted Extremity normal to inspection and full ROM Neuro Motor Exam: strength 5/5 throughout and muscle tone normal throughout Deep Tendon Reflexes: Rt Patellar (L4): 2+ and Lt Patellar (L4): 2+ NST FHR Rate Baby A Baseline: 150 Variability:: Moderate Accelerations:: 15 x 15 Decelerations:: None NST Reactive:: Yes FHR Category:: Category I Assessment & Plan (1) Diarrhea: COMMENT: IVF, blood cultures to r/o listeriosis, CBC. PLAN: Patient presents for triage evaluation secondary to diarrhea FHT: Moderate variability reactive no decelerations category I tracing [place]: no Contractions Assessment and plan: reassuring maternal and status patient discharged to home to follow-up in the office. See problem list details for additional plan information. Charges/Coding Visit Charges Office Visits / Consults: 33683 OV L3 Est 20min Multi Select Codes Urinary/Genital Urinary/Genital CPT Codes: 65339-01 non-stress test Interp
--- NOTE | 2024-08-10 22:47 | NURSING ---
Estelita Tipton CNM in room for elevated BP, suspected elevated BP due to pt anxiety, repeat BP WNL, provider remained at pt bedside
== END 2024-08-10 22:40 | disposition home or self-care (01) ==
LOC: WPOUT 19:42 → WP 19:43
PROVIDERS: PCP Internal Medicine; Referring Provider Registered Nurse; Visit Provider Registered Nurse
DX: O36.8120 Decreased fetal movements, second trimester, not applicable or unspecified (principal); Z3A.26 26 weeks gestation of pregnancy; O99.891 Other specified diseases and conditions complicating pregnancy; R19.7 Diarrhea, unspecified; R10.9 Unspecified abdominal pain
CPT/HCPCS: 96360; 36415; 59050; 85025; 87040; 99221; J7120; G0378

== ENCOUNTER → 2024-10-17 | Outpatient (CLI) | payer MEDICAID, SELFPAY ==
--- NOTE | 2024-10-17 15:20 | US_ITS ---
HISTORY: growth. TECHNIQUE: Transabdominal pelvic ultrasound was performed. 51 images. COMPARISON: 03/29/2024. FINDINGS: INTRAUTERINE GESTATION(s): Single. PRESENTATION: Cephalic. HEART MOTION: 155 bpm. PLACENTA: Fundal, grade 0. No placenta previa. CERVIX: Not well-visualized. AMNIOTIC FLUID INDEX (GRAY): 15.5 cm, maximum vertical pocket 5.2 cm. biometry- BIPARIETAL DIAMETER: 8.4 cm, corresponding to 33 weeks 5 days. HEAD CIRCUMFERENCE: 32.2 cm, corresponding to 36 weeks 3 days. ABDOMINAL CIRCUMFERENCE: 33.1 cm, corresponding to 37 weeks 0 days. FEMUR LENGTH: 6.6 cm, corresponding to 34 weeks 1 day. ESTIMATED GESTATIONAL AGE: 35 weeks 5 days. ESTIMATED DUE DATE (LIBAN): 11/16/2024. ESTIMATED WEIGHT: 2762 g, corresponding to 38th percentile. ANATOMY: Facial profile visualized on limited survey. US/OB Limited With Biometrics IMPRESSION: Single living intrauterine with an estimated gestational age of 35 weeks 5 days. Electronically Signed: Alana Castillo MD at 9:42 EST ,
== END | disposition home or self-care (01) ==
LOC: US 15:18
PROVIDERS: PCP Internal Medicine; Referring Provider Nurse Practitioner Women's Health; Visit Provider Nurse Practitioner Women's Health
DX: O09.523 Supervision of elderly multigravida, third trimester (principal); Z3A.00 Weeks of gestation of pregnancy not specified
CPT/HCPCS: 76816

== ENCOUNTER 2024-10-19 20:01 | Outpatient (CLI) | payer MEDICAID, SELFPAY ==
[2024-10-19 20:19] VITALS: BMI 38.8
[2024-10-19 20:20] VITALS: PULSE 97; O2SAT 96
[2024-10-19 20:21] VITALS: BP 120/83; PULSE 98; RESP 16; TEMP 36.9
[2024-10-19 21:53] LABS: Color, Urine Yellow (Yellow); Glucose, Dipstick Normal (Normal); Ketone-Dipstick Negative (Negative); Leukocyte Esterase-Dipstick Negative /ul (Negative); Nitrite-Dipstick Negative (Negative); Occult Blood-Urine Negative /ul (Negative); Protein-Dipstick Negative (Negative); Specific Gravity, Urine 1.025 (1.002-1.030); Urine Bilirubin Dipstick Negative (Negative); Urine Clarity Sl. Cloudy (Clear); Urine Urobilinogen Normal (Normal)
--- NOTE | 2024-10-20 03:21 | OB.TRI.PN ---
Progress Notes Date of Service: 10/19/24 Progress Note: Patient presents for triage evaluation secondary to abdominal pain/decreased movement at 36 weeks. Patient requesting NST for reassurance FHT: 145 Moderate variability reactive no decelerations category I tracing [place]: irregular Contractions Assessment and plan: cervical exam unchanged, abdominal pain resolved, increased movement, Reactive NST, reassuring maternal and status patient discharged to home to follow-up in office. See problem list details for additional plan information. Laboratory Studies: Laboratory Tests 10/19/24 Range/Units 21:35 Urine Color Yellow (Yellow) Urine Clarity Sl. Cloudy (Clear) Urine pH 6.0 (5.0 - 8.0) Ur Specific [place] 1.025 (1.002-1.030) Urine Protein Negative (Negative) mg/dl Urine Glucose (UA) Normal (Normal) mg/dl Urine Ketones Negative (Negative) mg/dl Urine Occult Blood Negative (Negative) /ul Urine Nitrite Negative (Negative) Urine Bilirubin Negative (Negative) mg/dL Urine Urobilinogen Normal (Normal) mg/dl Ur Leukocyte Esterase Negative (Negative) /ul Charges/Coding Multi Select Codes Urinary/Genital Urinary/Genital CPT Codes: 84542-81 non-stress test Interp Assessment & Plan (1) Decreased movements in third trimester: (2) Obesity affecting : QUALIFIERS: Trimester: third trimester Obesity type affecting : unspecified obesity Qualified Code(s): O99.213 - Obesity complicating , third trimester COMMENT: A1C 5.0, encouraged healthy weight gain. (3) Abnormal glucose affecting : COMMENT: failed one 1 hr. declined 3 hr. normal BS at home. (4) AMA (advanced maternal age) multigravida 35+: QUALIFIERS: Trimester: third trimester Qualified Code(s): O09.523 - Supervision of elderly multigravida, third trimester COMMENT: genetic screening declined. 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 (6) Patient is Mormonism: COMMENT: declines blood products. (7) H/O section: COMMENT: planning , history of csectin for breech and then 1 successful . (8) Hx of depression, currently : COMMENT: after of first child; stable (9) Supervision of high-risk : QUALIFIERS: Trimester: third trimester Qualified Code(s): O09.93 - Supervision of high risk , unspecified, third trimester COMMENT: PRR,, LIBAN 11/13/24, girl Cara FRANSICO Mojica, Maribel, Emaline Carlos (10) : QUALIFIERS: Weeks of gestation: 35 weeks Qualified Code(s): Z3A.35 - 35 weeks gestation of COMMENT: discussed genetic & carrier testing- declined. nl anatomy (11) Positive GBS test: COMMENT: treat in labor. growth not high enough to treat
== END 2024-10-19 22:45 | disposition home or self-care (01) ==
LOC: WPOUT 20:13 → WP 20:13
PROVIDERS: PCP Internal Medicine; Referring Provider Advanced Practice Midwife; Visit Provider Advanced Practice Midwife
DX: O36.8130 Decreased fetal movements, third trimester, not applicable or unspecified (principal); O99.213 Obesity complicating pregnancy, third trimester; O09.523 Supervision of elderly multigravida, third trimester; Z3A.36 36 weeks gestation of pregnancy
CPT/HCPCS: 59025; 59050; 81002; 99221; G0378

== ENCOUNTER 2024-10-23 18:20 | Inpatient (IN) | payer MEDICAID, SELFPAY ==
[2024-10-23] VITALS (32 sets, daily range): BP systolic 111–134; BP diastolic 63–85; PULSE 73–163; RESP 16–18; TEMP 36–36.6; O2SAT 94–100; BMI 38.6
[2024-10-23] MEDS: Lactated Ringers 1,000 ML 999 ML IV (18:45)
[2024-10-23 18:59] LABS: Absolute Lymphocyte Count 2.89 X10^3/uL (0.83-4.51); Absolute Neutrophil Count 9.9 X10^3/uL (2.0-7.7); Basophil# 0.02 X10^3/uL; Basophil% 0.1 % (0-1); Eosinophil# 0.08 X10^3/uL; Eosinophils% 0.6 % (0-5); Hematocrit 40.9 % (37-47); Hemoglobin 13.6 g/dL (12.0-15.0); Lymphocyte # 2.89 X10^3/ul (0.83-4.51); Lymphocyte % 20.5 % (19-41); Mean Corp Hgb Conc 33.3 g/dL (32-36); Mean Corpuscular Hgb 28.2 pg (27.0-32.0); Mean Corpuscular Volume 84.9 fL (81-99); Mean Platelet Vol. 9.8 fl (6.2-12.0); Monocyte# 1.09 X10^3/uL; Monocyte% 7.7 % (0-10); NRBC Flagged by Analyzer 0 % (0-5); Neutrophil # 9.89 X10^3/uL (2.7-7.7); Neutrophil % 70.2 % (47-70); Platelet Count 229 K/mm3 (150-450); RBC Distribution Width CV 14.2 % (11.6-14.6); RBC Distribution Width SD 43.9 fl (35.1-43.9); Red Blood Count 4.82 M/mm3 (4.2-5.4); White Blood Count 14.1 K/mm3 (4.4-11.0)
[2024-10-23] MEDS: Lactated Ringers 1,000 ML 50 ML IV (19:46)
[2024-10-23 19:53] LABS: Syphilis Antibodies Non-reactive
[2024-10-23] MEDS: fentaNYL-bupivacaine (epidural) 100 ML BAG EPIDURAL (20:31)
--- NOTE | 2024-10-23 20:33 | HP.PCM.OB_ITS ---
HPI - General General Date of Admission: 10/23/24 HPI Narrative MARY ELLEN GUZMAN, is a 34 F who presents IAL regular ctx 4 cm with bloody show, increased discharge, wanting an epidural. Maternal Data Information LIBAN Calculator Estimated Delivery Date Method Current WG Current Estimate 11/13/24 LMP (Uncertain) 37w 0d PFSH PFSH Medical History History of panic disorder (vaginal after ) depression [place] Anxiety Home Medications ?Medication ?Instructions ?Recorded ?Last Taken ?Type epinephrine 0.3 mg/0.3 mL 1 injectable IM X1 PRN Allergies 11/17/19 10/18/24 History injection, auto-injector cod liver oil 1 cap PO BID 04/06/24 10/22/24 History wheat germ oil 45 mg PO BID 04/06/24 10/22/24 History magnesium 250 mg tablet 250 mg PO QDAY 09/03/24 10/18/24 History Catalyn chew See Rx Instructions PO BID 10/19/24 10/22/24 History Ferrofood PO DAILY 10/19/24 10/22/24 History Allergy/AdvReac Type Severity Reaction Status Date / Time amoxicillin Allergy Severe Anaphylaxis Verified 10/23/24 09:43 cephalexin (From Keflex) Allergy Severe Anaphylaxis Verified 10/23/24 09:43 Penicillins Allergy Severe Anaphylaxis Verified 10/23/24 09:43 sulfamethoxazole (From Allergy Severe Anaphylaxis Verified 10/23/24 09:43 Bactrim) trimethoprim (From Bactrim) Allergy Severe Anaphylaxis Verified 10/23/24 09:43 bee venom protein (honey bee) Allergy Anaphylaxis Verified 10/23/24 09:43 gluten Allergy Abd Verified 10/23/24 09:43 cramps/diarrhea lactose Allergy Abd Verified 10/23/24 09:43 cramps/diarrhea Family History Grandmother Breast cancer, Onset Age: 70 grandmother and great grandmother Surgical History [place] teeth extracted Previous section History of tonsillectomy and adenoidectomy History of hand surgery Social History adopted: No household members: spouse and children number of children: 3 current occupational status: unemployed current occupation: [employer] pets and animals: Yes pets and animals: dog(s) history of recent travel: No sexually active: Yes Smoking Status: Never smoker alcohol intake: never substance use type: does not use diet: other well-balanced diet: daily or most days caffeine: No eating out: rarely or never during the past year weight has: increased > 10 lbs what type of physical activity do you participate in: none suzie/mormonism: Jehovah Witness seatbelt use: always do you feel safe at home: Yes additional social history: [facility] Patient stays at home History 5 Elective abortions Hx Para 3 Spontaneous abortions 1 Hx # Term Pregnancies Ectopic pregnancies Hx # Pregnancies Multiple births # of living children 3 Past Pregnancies Del. 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 ACOG/uptodate education given to patient. 89 % likelihood of success per calculator TOLAC consent form signed: [] Plans Covid status: [] Flu vaccine: declines Tdap vaccine: declines Rhogam: na LARC form signed: yes movement and labor precautions reviewed. Problem list reviewed and updated with the most current plan of care details and appropriate orders placed. Relevant counseling for the gestational age provided. Continue routine care and follow up unless otherwise noted in visit notes/problem list details OB Flowsheet Initial Weight: Not Recorded Date -?-?-?-?-?-?-?-?-?-?-?-?- EGA Weight BP Urine Prot -?-?-?-?-?-?-?-?-?-?-?-?- Glucose FHR FuHt Pres Dilation -?-?-?-?-?-?-?-?-?-?-?-?- Effaced St Visit Note 04/13/24 -?-?-?-?-?-?-?-?-?-?-?-?- 9w 3d 191 lb 2 oz 116/75 -?-?-?-?-?-?-?-?-?-?-?-?- 175 -?-?-?-?-?-?-?-?-?-?-?-?- KW- CRL cons wit h dates. declines NIPT. Desires TOLAC 05/09/24 -?-?-?-?-?-?-?-?-?-?-?-?- 13w 1d 196 lb 117/75 Negative -?-?-?-?-?-?-?-?-?-?-?-?- Negative 155 -?-?-?-?-?-?-?-?-?-?-?-?- sm- no vb lof cr amping sm- no vb lof cramping ino henderson trouble sleeping. possible lead exposure at home- ordered level. declined genetic screening. discussed mfm scan. 06/06/24 -?-?-?-?-?-?-?-?-?-?-?-?- 17w 1d 200 lb 8 oz 112/64 Nega tive -?-?-?-?-?-?-?-?-?-?-?-?- Negative 151 -?-?-?-?-?-?-?-?-?-?-?-?- MH-No Vb. Juaquin henderson flutters. Denies concerns 06/21/24 -?-?-?-?-?-?-?-?-?-?-?-?- 19w 2d 202 lb 4 oz 119/77 Nega tive -?-?-?-?-?-?-?-?-?-?-?-?- Negative 161 0 -?-?-?-?-?-?-?-?-?-?--?-?- MH-Work in due t o complaint of loss of fluid and thinks loss of mucous plug. No cramping or bleeding. ROM collected 07/05/24 -?-?-?-?-?-?-?-?-?-?-?-?- 21w 2d 206 lb 117/82 Negative -?-?-?-?-?-?-?-?-?-?-?-?- Negative 140 -?-?-?-?-?-?-?-?-?-?-?-?- SM- no vb lof go od fm no regualr ctx 08/09/24 -?-?-?-?-?-?-?-?-?-?-?-?- 26w 2d 114/78 Negative -?-?-?-?-?-?-?-?-?-?-?-?- Negative 157 27 -?-?-?-?-?-?-?-?-?-?-?-?- JV- patient nicole cook weigh in today. She drank the glucola drink and plans to have this checked by 9:30 today. She is very nervous about Dr. Alcantara not being available to week of her due date. we discussed. 08/20/24 -?-?-?-?-?-?-?-?-?-?-?-?- 27w 6d 213 lb 3 oz 118/78 Nega tive -?-?-?-?-?-?-?-?-?-?-?-?- Negative 154 28 -?-?-?-?-?-?-?-?-?-?-?-?- -No VB, LOF. G ood FM. Declines 3 hr GTT. Has done just 2 days of QID glucose readings due to illness/diarrhea. All readings WNL. Will continue and bring next visit. Declines flu and tdap. Larc. 09/03/24 -?-?-?-?-?-?-?-?-?-?-?-?- 29w 6d 117/77 Negative -?-?-?-?-?-?-?-?-?-?-?-?- Negative 145 32 Cephalic -?-?-?-?-?-?-?-?-?-?-?-?- SM- no vb lof go od fm no regular ctx reviewed BS and WNL 09/24/24 -?-?-?-?-?-?-?-?-?-?-?-?- 32w 6d 221 lb 8 oz 110/72 Nega tive -?-?-?-?-?-?-?-?-?-?-?-?- Negative 145 33 -?-?-?-?-?-?-?-?-?-?-?-?- MH-No VB, LOF. G ood FM. Growth US at 36 wk 10/08/24 -?-?-?-?-?-?-?-?-?-?-?-?- 34w 6d 128/76 Negative -?-?-?-?-?-?-?-?-?-?-?-?- Negative 160 34 -?-?-?-?-?-?-?-?-?-?-?-?- SM- no vb lof go od fm nroe uglar ctx having nerve pain down the inside of her legs. 10/15/24 -?-?-?-?-?-?-?-?-?-?-?-?- 35w 6d 119/77 Negative -?-?-?-?-?-?-?-?-?-?-?-?- Negative 135 35 Cephalic -?-?-?-?-?-?--?-?-?-?-?-?- SM- no vb lof co some dec fm no reuglar ctx having trouble sleeping. will get nst todya, growth us tuesday10/23/24 -?-?-?-?-?-?-?-?-?-?-?-?- 37w 0d 122/83 Negative -?-?-?-?-?-?-?-?-?-?-?-?- Negative 140 37 Cephalic 3 -?-?-?-?-?-?-?-?-?-?-?-?- 60 -2 SM- no vb lof good fm irreuglar ctx pelvic pressure NST FHR Rate Baby A Baseline: 140 Variability:: Moderate Accelerations:: 15 x 15 Decelerations:: None NST Reactive:: Yes FHR Category:: Category I Uterine Activity:: q3-5 ROS Constitutional Constitutional: Reports systems reviewed and no addt'l complaints, except as documented ENT HEENT: Reports systems reviewed and no addt'l complaints, except as documented Cardiovascular Cardiovascular: Reports systems reviewed and no addt'l complaints, except as documented Respiratory/Chest Respiratory/Chest: Reports systems reviewed and no addt'l complaints, except as documented Gastrointestinal Gastrointestinal: Reports systems reviewed and no addt'l complaints, except as documented and nausea; Denies abdominal pain Genitourinary Genitourinary: Reports systems reviewed and no addt'l complaints, except as documented, contractions Details: present and frequency (regular ) and movement Details: present Musculoskeletal Musculoskeletal: Reports systems reviewed and no addt'l complaints, except as documented Integumentary Integumentary: Reports as per HPI Neurologic Neurologic: Reports systems reviewed and no addt'l complaints, except as documented Endocrine Endocrinology: Reports systems reviewed and no addt'l complaints, except as d ocumented Vital Signs Vital Signs Vital Signs: 10/23/24 17:02 10/23/24 17:07 10/23/24 17:07 Temperature Temperature Source Pulse Rate 91 Respiratory Rate 17 Blood Pressure 118/81 H BP Systolic 118 BP Diastolic 81 Pulse Ox 10/23/24 17:07 10/23/24 17:07 10/23/24 17:07 Temperature 97.3 F L Temperature Source Temporal Pulse Rate Respiratory Rate 18 Blood Pressure BP Systolic BP Diastolic Pulse Ox 10/23/24 17:08 10/23/24 19:24 10/23/24 19:24 Temperature Temperature Source Temporal Pulse Rate Respiratory Rate 16 Blood Pressure BP Systolic BP Diastolic Pulse Ox 97 10/23/24 19:24 10/23/24 19:30 10/23/24 19:30 Temperature 96.8 F L Temperature Source Pulse Rate 87 Respiratory Rate Blood Pressure 127/77 H BP Systolic 127 BP Diastolic 77 Pulse Ox 10/23/24 19:37 10/23/24 19:37 10/23/24 19:42 Temperature Temperature Source Pulse Rate 97 Respiratory Rate Blood Pressure 120/70 BP Systolic 120 BP Diastolic 70 Pulse Ox 100 10/23/24 19:42 10/23/24 19:42 10/23/24 19:42 Temperature Temperature Source Pulse Rate 99 Respiratory Rate 16 Blood Pressure BP Systolic BP Diastolic Pulse Ox 100 10/23/24 19:47 10/23/24 19:47 10/23/24 19:47 Temperature Temperature Source Pulse Rate 83 Respiratory Rate Blood Pressure 115/73 BP Systolic 115 BP Diastolic 73 Pulse Ox 100 10/23/24 19:52 10/23/24 19:52 10/23/24 19:53 Temperature Temperature Source Pulse Rate 89 Respiratory Rate Blood Pressure 120/79 BP Systolic 120 BP Diastolic 79 Pulse Ox 100 10/23/24 19:53 10/23/24 19:54 10/23/24 19:54 Temperature Temperature Source Pulse Rate 94 97 Respiratory Rate Blood Pressure 127/76 H BP Systolic 127 BP Diastolic 76 Pulse Ox 10/23/24 19:54 10/23/24 19:57 10/23/24 19:57 Temperature Temperature Source Pulse Rate 98 Respiratory Rate 16 Blood Pressure 122/79 H BP Systolic 122 BP Diastolic 79 Pulse Ox 10/23/24 19:57 10/23/24 19:58 10/23/24 20:02 Temperature Temperature Source Pulse Rate Respiratory Rate 16 Blood Pressure 123/81 H BP Systolic 123 BP Diastolic 81 Pulse Ox 100 10/23/24 20:02 10/23/24 20:02 10/23/24 20:08 Temperature Temperature Source Pulse Rate 94 Respiratory Rate 16 Blood Pressure 134/80 H BP Systolic 134 BP Diastolic 80 Pulse Ox 10/23/24 20:08 10/23/24 20:08 10/23/24 20:08 Temperature Temperature Source Pulse Rate 85 Respiratory Rate 16 Blood Pressure BP Systolic BP Diastolic Pulse Ox 100 10/23/24 20:13 10/23/24 20:13 10/23/24 20:13 Temperature Temperature Source Pulse Rate 85 83 Respiratory Rate Blood Pressure 131/75 H BP Systolic 131 BP Diastolic 75 Pulse Ox 10/23/24 20:13 10/23/24 20:17 10/23/24 20:17 Temperature Temperature Source Pulse Rate 82 Respiratory Rate Blood Pressure 133/85 H BP Systolic 133 BP Diastolic 85 Pulse Ox 100 10/23/24 20:17 10/23/24 20:18 10/23/24 20:18 Temperature Temperature Source Pulse Rate 163 H Respiratory Rate 16 Blood Pressure BP Systolic BP Diastolic Pulse Ox 94 10/23/24 20:22 10/23/24 20:22 10/23/24 20:23 Temperature Temperature Source Pulse Rate 85 86 Respiratory Rate Blood Pressure 132/79 H BP Systolic 132 BP Diastolic 79 Pulse Ox 10/23/24 20:23 10/23/24 20:26 10/23/24 20:26 Temperature Temperature Source Pulse Rate 87 Respiratory Rate Blood Pressure BP Systolic BP Diastolic Pulse Ox 95 94 10/23/24 20:27 10/23/24 20:27 10/23/24 20:27 Temperature Temperature Source Pulse Rate 80 Respiratory Rate 16 Blood Pressure 132/77 H BP Systolic 132 BP Diastolic 77 Pulse Ox 10/23/24 20:28 10/23/24 20:28 10/23/24 20:31 Temperature Temperature Source Pulse Rate 79 82 Respiratory Rate Blood Pressure BP Systolic BP Diastolic Pulse Ox 95 10/23/24 20:31 Temperature Temperature Source Pulse Rate Respiratory Rate Blood Pressure BP Systolic BP Diastolic Pulse Ox 94 Weight Weight: 226 lb 3.108 oz Body Mass Index (BMI) 38.6 Physical Exam Const alert, oriented x3 and healthy appearing Constitutional Narrative: uncomfortable with contractions HEENT normocephalic and moist oral mucous membranes Head and Scalp: atraumatic Neck full ROM, no lymphadenopathy, supple and thyroid normal General: trachea midline Thyroid: thyroid normal Lymph Lymphatic: no lymphadenopathy noted Chest inspection of chest normal Resp normal respiratory effort Cardio regular rate GI normal to inspection, nondistended, normoactive bowel sounds, soft to palpation and non-tender Inspection: gravid external exam normal Bimanual Exam - Vag & Uterus: uterus non-tender Manual OB Exam: estimated gestational size appropriate, presentation cephalic, dilated, effaced and station Extremity normal to inspection General Extremity: Negative for edema Skin no rashes or lesions noted Neuro deep tendon reflexes 2+ bilaterally Motor Exam: strength 5/5 throughout and clonus absent Psych mental status grossly normal Labs Labs Labs: Blood Type O POSITIVE Antibody Screen NEGATIVE Hct 40.9 % (37-47) Hgb 13.6 g/dL (12.0-15.0) Obstetrics Ultrasound Syphilis Total Ab Non-reactive Rubella IgG Antibody Reactive (Nonreactive) Hep Bs Antigen Non-Reactive (Nonreactive) Hepatitis C Antibody Non-Reactive (Nonreactive) Chlamydia DNA (IRON) Negative (Negative) N.gonorrhoeae DNA (IRON) Negative (Negative) HIV 1&2 Antibody Non-Reactive (Nonreactive) Glucose 1 Hr 50 gm 159 mg/dL (70-140) H Rhogam given: No Miscellaneous Test Assessment & Plan (1) Positive GBS test: COMMENT: treat in labor. growth not high enough to treat (2) : QUALIFIERS: Weeks of gestation: 37 weeks Qualified Code(s): Z3A.37 - 37 weeks gestation of COMMENT: discussed genetic & carrier testing- declined. nl anatomy (3) Supervision of high-risk : QUALIFIERS: Trimester: third trimester Qualified Code(s): O09.93 - Supervision of high risk , unspecified, third trimester COMMENT: PRR,, LIBAN 11/13/24, girl Cara PC Yunior, Maribel, Emaline Carlos (4) Hx of depression, currently : COMMENT: after of first child; stable (5) H/O section: COMMENT: planning , history of csectin for breech and then 1 successful . (6) Patient is Scientology: COMMENT: declines blood products. 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 (8) AMA (advanced maternal age) multigravida 35+: QUALIFIERS: Trimester: third trimester Qualified Code(s): O09.523 - Supervision of elderly multigravida, third trimester COMMENT: genetic screening declined. plan 36 week growth US(EFW-38%, AC 79%), plan deliveyr by 40 weeks or 41 with extra testing (9) Abnormal glucose affecting : COMMENT: failed one 1 hr. declined 3 hr. normal BS at home. (10) Obesity affecting : QUALIFIERS: Obesity type affecting : unspecified obesity Trimester: third trimester Qualified Code(s): O99.213 - Obesity complicating , third trimester COMMENT: A1C 5.0, encouraged healthy weight gain. (11) Decreased movements in third trimester: PLAN: Plan admit in active labor plan vancomycin and epidural
[2024-10-23] MEDS: Vancomycin HCl 2,000 MG in 0.9% Normal Saline (500mL Bag) 500 ML 250 MG IV (21:22)
[2024-10-24] VITALS (37 sets, daily range): BP systolic 103–120; BP diastolic 59–71; PULSE 66–90; RESP 15–18; TEMP 36.4–37.1; O2SAT 96–100
[2024-10-24] MEDS: fentaNYL-bupivacaine (epidural) 100 ML BAG EPIDURAL (01:05)
[2024-10-24] MEDS: Oxytocin 10 UNITS/ML Vial IM (01:29)
[2024-10-24] MEDS: Oxytocin 15 Units/NS 250ml 15 UNITS/250 ML IV.SOLN 83 UNITS IV (01:30)
--- NOTE | 2024-10-24 01:36 | OB.VAGDELI_ITS ---
Assessment & Plan (1) Obesity affecting : QUALIFIERS: Trimester: third trimester Obesity type affecting : unspecified obesity Qualified Code(s): O99.213 - Obesity complicating , third trimester COMMENT: A1C 5.0, encouraged healthy weight gain. (2) Abnormal glucose affecting : COMMENT: failed one 1 hr. declined 3 hr. normal BS at home. (3) AMA (advanced maternal age) multigravida 35+: QUALIFIERS: Trimester: third trimester Qualified Code(s): O09.523 - Supervision of elderly multigravida, third trimester COMMENT: genetic screening declined. 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 (5) Patient is Sabianist: COMMENT: declines blood products. (6) H/O section: COMMENT: planning , history of csectin for breech and then 1 successful . (7) Hx of depression, currently : COMMENT: after of first child; stable (8) Supervision of high-risk : QUALIFIERS: Trimester: third trimester Qualified Code(s): O09.93 - Supervision of high risk , unspecified, third trimester COMMENT: PRR,, LIBAN 11/13/24, girl Cara PC Yunior, Maribel, Emaline Carlos (9) : QUALIFIERS: Weeks of gestation: 37 weeks Qualified Code(s): Z3A.37 - 37 weeks gestation of COMMENT: discussed genetic & carrier testing- declined. nl anatomy (10) Positive GBS test: COMMENT: treat in labor. growth not high enough to treat (11) Vaginal after : COMMENT: SM 37 girl cara Maternal Data Information LIBAN Calculator Estimated Delivery Date Method Current WG Current Estimate 11/13/24 LMP (Uncertain) 37w 1d Vaginal Delivery Maternal Presentation Maternal Presentation: see assessment and plan Vaginal Delivery Information Procedure Performed: Surgeon/Practitioner: Mari Alcantara Date of Procedure: 10/24/24 Pre-Procedure Diagnosis: see assessment and plan Post-Procedure Diagnosis: same Type of anesthesia: Epidural Estimated Blood Loss: 300 Findings Description of procedure: Patient began pushing and delivered the head in the KIMO presentation. The head was delivered atraumatically and a loose nuchal cord ?1 was identified and easily reduced over the 's head. The anterior and posterior shoulders delivered without complication followed by the rest of the and the infant was placed on the maternal abdomen. Delayed cord clamping was employed for approximately 60 seconds. Cord was clamped and cut and gentle traction was applied to the cord and the placenta delivered spontaneously immediately following it was noted to be intact with three-vessel cord. The perineum and vagina were inspected and first degree laceraiton repaired i nthe usual fasihon . EBL was 300. Patient and tolerated delivery well. Presentation: Vertex Placental Delivery Description: Spontaneous Specimen collected: Yes Description of specimen(s) removed: placenta Nuclear Medicine Technologist push connector assembler: No Post Vaginal Deli Medications given after delivery: Other (pitocin) Complication Complications: No Multi Select Codes Urinary/Genital Urinary/Genital CPT Codes: 59815 care after delivery(BORIS)
--- NOTE | 2024-10-24 01:39 | DCINST_ITS ---
Discharge Instructions Diet Discharge Diet: No restrictions DC O2, CPAP, BIPAP needs Additional Home O2 Discharge instructions: No Dressing / Incision Discharge Activity: Return to Normal Activity, May Not Drive (while taking na rcotic pain medications.) and May Shower May resume sexual activity in: 4-6 weeks Dressing / Incision Call your doctor if your incision/area has: Continuous Slow Oozing, Sudden Increased Bleeding, Increased Pain/ Swelling, Increased Redness and Foul Smelling Discharge Follow Up Care Please Follow Up With: Mari Alcantara MD When: Call [phone] to make an appointment with your doctor in 6 weeks. If you had elevated blood pressure or 4th degree laceration, you will need to be seen in 2 weeks. Test Results: Test results from this visit will be discussed in further detail at your follow- up appointment, if applicable. Discharge Plan Admission Admit Date/Time: 10/23/24 18:20 Attending Provider: Mari Alcantara Primary Care Provider: Meena Mayen Discharge Orders/Prescriptions Prescriptions: No Action cod liver oil Capsule 1 cap PO BID wheat germ oil Oil 45 mg PO BID magnesium 250 mg tablet 250 mg PO QDAY epinephrine 0.3 MG syringe 1 injectable IM X1 PRN (Reason: Allergies) Patient Comments: INJECT CONTENTS OF 1 PEN NEEDED FOR ALLERGIC REACTION MAY REPEAT ONCE DIRECTED Ferrofood PO DAILY Rx Instructions: 2 capsules in the AM and 1 capsule HS; 2 cap Catalyn chew See Rx Instructions PO BID Rx Instructions: 2 chewable tablets in the AM and 1 chewable tablet HS orally twice a day; Referrals / Follow Up: Meena Mayen MD [Primary Care Provider] -
[2024-10-25 01:17] VITALS: PULSE 79; O2SAT 97
[2024-10-25 01:18] VITALS: BP 114/66; PULSE 75; PULSE 80; RESP 16; TEMP 36.8; O2SAT 99
[2024-10-25 04:42] VITALS: BP 126/60; PULSE 86; RESP 16; TEMP 36.7; O2SAT 98; O2SAT 99
--- NOTE | 2024-10-25 07:13 | PCM.PN.OB ---
Subjective Subjective Patient doing well without complaints. Tolerating PO. Ambulating and voiding without difficulty. feeding well. Denies chest pain, shortness of breath, calf pain/swelling, fevers, chills, lightheadedness. Objective Data Objective Data Vital Signs: Vital Signs Temp Pulse Resp BP Pulse Ox O2 Del Method 98.0 F 86 16 126/60 H 99 Room Air 10/25/24 04:42 10/25/24 04:42 10/25/24 04:42 10/25/24 04:42 10/25/24 04:42 10/25/24 04:42 Oxygen Delivery Method Room Air Weight: 226 lb 3.108 oz Body Mass Index (BMI) 38.6 Intake & Output: Intake and Output for Last 24 Hours 10/23/24 10/24/24 10/25/24 23:59 23:59 23:59 Intake Total 1540 / 1540 545.99 / 545.99 Output Total 400 / 400 1800 / 1800 Balance 1140 / 1140 -1254.01 / -1254.01 Lab / Micro Data 10/23/24 18:45 Micro: Microbiology 10/23/24 20:40 Genital vaginal Group B Streptococcus (PCR) - Final Streptococcus group B ROS Constitutional Constitutional: Reports systems reviewed and no addt'l complaints, except as documented Cardiovascular Cardiovascular: Reports systems reviewed and no addt'l complaints, except as documented Respiratory/Chest Respiratory/Chest: Reports systems reviewed and no addt'l complaints, except as documented Gastrointestinal Gastrointestinal: Reports systems reviewed and no addt'l complaints, except as documented Physical Exam Const alert, oriented x3 and no apparent distress HEENT Head and Scalp: atraumatic Resp normal respiratory effort GI soft to palpation and non-tender Bimanual Exam - Vag & Uterus: uterus non-tender Uterus Palpation: uterus fundus firm (below Umbilicus) Assessment & Plan (1) Vaginal after : COMMENT: 37 girl christy PLAN: Plan s/p PPD # 1 1. routine post delivery care 2. breast feeding- support given 3. rh positive 4. rubella immune
[2024-10-25 09:20] VITALS: BP 110/66; PULSE 78; RESP 16; TEMP 36.4; O2SAT 99
[2024-10-25 09:21] VITALS: BP 110/66; PULSE 77
[2024-10-25 13:16] VITALS: BP 122/74; PULSE 99; RESP 16; TEMP 36.5
--- NOTE | 2024-10-25 13:18 | CASEMGMT ---
Social Work Assessment Labor and Delivery Unit Patient Address: [address] [place] [id number] Phone number: [phone] Date of Referral: 10/23/24 Time of Referral:? 1958 Referred By: Dr. Alcantara Date of Intervention: ??10/25/24 Time of Intervention:? 944 Reason for Referral:? mental health Sw completed chart review and acknowledges social work consult due to maternal mental health history. Sw presented to bedside and introduced self to mother of baby (MOB- Edith) and father of baby (FOB- Carlos). Sw explained reason for sw involvement and completed psychosocial assessment. History obtained from: medical records, MOB and HEATHER. Household composition: Currently residing in the family home is SETH, HEATHER, their three older children: Yunior (9), Maribel (4) and Emaline (3). [place] baby to be included in residence when ready for discharge. No concerns with housing, parents state their home is safe and secure. Patient's parent/guardian status:? ?SETH states that she and HEATHER have been together for 10 years after meeting each other through a mutual friend. This is fourth baby for both parents together. No concerns regarding domestic violence or intimate partner violence. Medical History: ?SETH is 34 year old female who is 5, para 3- now 4 following labor and delivery of . SETH received routine care during with [facility]. SETH presented to hospital and delivered baby via vaginal delivery on 10/24/24. Baby girl, Nancy, was born weighing 6lb 2oz. SETH states that she is breast feeding and it is going well. Baby will be followed by Dr. Menon for pediatrics. Educational Status:? Both parents completed high school, no college education. Parents deny concerns with reading, learning or comprehension. Financial Status: HEATHER is gainfully employed outside of the home working as a high school vice principal. He states that he is able to take some time off of work now that baby has been born. SETH does not work, she is a stay at home mom with the children. Supplies: Parents have obtained all necessary baby items, including: car seat, safe sleep space, clothes, diapers and wipes. Childcare/Caregiver(s):? SETH will be the primary caregiver to baby along with HEATHRE when he is not working. Parents also have support from both sets of grandparents. They are helping with the other children while MOB and FOB are at the hospital with baby. Transportation:?? Both parents have their drivers license and reliable means of transportation. No barriers reported. Programs/Agencies Involved: ??Parents are connected to insurance through [employer], they were reminded to ensure that baby gets added to their insurance within thirty days. Parents deny linkage to any other community resources. Katie encouraged parents to apply for SNAP benefits when they call to get baby added to insurance. Katie explained that with a fourth dependent they may meet income guidelines at this time. Children Services/Legal Issues:??? No history of children services involvement. No issues or concerns warranting referral to be made at this time. Behavioral Health Issues: ??Mental Health History:?HEATHER denies mental health history. SETH states that she has history of anxiety, a panic disorder and did experience depression after her first baby was born. SETH stated that after her first baby was born she had a lot of medical complications and her mental health was significantly impacted by that. SETH states that she is not prescribed medication but is familiar with signs and symptoms of mental health concerns to be on the look out for. ?? Substance Use History:?Parents deny substance use prior to and during . ? Family History:?Parents deny family history of substance abuse/ addiction and significant mental health diagnoses. ? Drug Screens: No drug screens observed in chart review. Family/Social Stressors:? Parents deny any issues, concerns or stressors at this time. Support Systems: MOB identifies that both sets of grandparents are helpful and supportive, along with maternal sister/ aunt. Depression/Shaken Baby/Safe Sleeping: Katie educated parents on signs and symptoms of baby blues and mood and anxiety disorders to be on the lookout for during this period. MOB states that she feels good following delivery, denies feeling anxious or worried about anything. MOB states that she has never struggled with feeling down or depressed, but also has awareness of healthy and safe coping mechanisms to utilize if she ever felt as though her mental health was being impacted. FOB states that if MOB were to struggle during this period he would be able to recognize that and would know how to help and support her. Katie educated parents on shaken baby prevention and ABCs of safe sleep. Parents express understanding. ASSESSMENT:? MOB and baby admitted following labor and delivery of . MOB and FOB were welcoming of sw when sw entered room.MOB was observed laying comfortably on bed and FOB was laying on couch with infant. MOB and FOB both talkative and engaging throughout completion of assessment. MOB states that she is familiar with what symptoms to be on the lookout for regarding her mental health this period. MOB states that she struggled with anxiety/ depression after her first baby was born, but the last two deliveries/ post periods she did not struggle at all. MOB encouraged to talk to her OBGYN if at any point in time during this post period she feels as though she is struggling. MOB agreed. Parents have natural supports in place and have obtained all necessary baby items. Both parents were engaging, and observed to be supportive of one another. PLAN:?? No other services requested or indicated. MOB and baby to be discharged when medically ready. Parents were provided literature regarding: signs and symptoms of baby blues and mood and anxiety disorders, Help Me Grow, shaken baby prevention, ABCs of safe sleep and a list of county resources that are available for them should any needs present themselves. Kenia Cohen, MARINE METEOROLOGIST, REFRIGERATING MACHINE OPERATOR
--- NOTE | 2024-10-29 14:06 | NURSING ---
Follow up phone call completed. Patient stated she is doing well, she did have a question but had already spoken to her accounting system expert and no longer has any questions or concerns. She did state feeding is going well and did have to supplementing due to history with low supply, denies any questions about supplementation at this time. Patient reports feeling tired but denies any S+S or complications. Encouragement and support given.
== END 2024-10-25 13:40 | disposition home or self-care (01) | DRG 560 ==
LOC: WPOUT 18:23 → WP 18:23
PROVIDERS: Admitting Provider Obstetrics & Gynecology; PCP Internal Medicine; Visit Provider Obstetrics & Gynecology
DX: O34.219 Maternal care for unspecified type scar from previous cesarean delivery (principal); Z37.0 Single live birth; O36.8130 Decreased fetal movements, third trimester, not applicable or unspecified; O99.820 Streptococcus B carrier state complicating pregnancy; Z3A.37 37 weeks gestation of pregnancy; Z88.0 Allergy status to penicillin; O69.81X0 Labor and delivery complicated by cord around neck, without compression, not applicable or unspecified; O70.0 First degree perineal laceration during delivery
CPT/HCPCS: 59025; 59050; 85025; 86780; 86850; 86900; 86901; 87653; 99221; G0378

== ENCOUNTER → 2024-12-18 | Outpatient (CLI) | payer MEDICAID, SELFPAY ==
[2024-12-22 11:08] LABS: HPV APTIMA, High Risk Negative (Negative)
== END | disposition home or self-care (01) ==
LOC: LABSPEC 16:32
PROVIDERS: PCP Internal Medicine; Visit Provider Nurse Practitioner Women's Health
DX: Z12.4 Encounter for screening for malignant neoplasm of cervix (principal)
CPT/HCPCS: 87624; 88175; G0145